=== PATIENT | female | born 1980 | race Caucasian/White ===

== ENCOUNTER → 2016-06-13 | Outpatient (CLI) | payer BC ==
[~2016-06-13] MED LIST: HYDR-5688 PO; PREN27TA PO; ZNTT/150 PO
--- NOTE | 2016-06-13 11:01 | DIAGNOSTIC IMAGING REPORT ---
LEFT KNEE 4 VIEWS CLINICAL HISTORY: Left knee pain. FINDINGS: AP, crosstable lateral, tunnel, and sunrise views of the left knee are compared to study dated 02/14/2015. The skeletal structures are well mineralized. No fracture is seen. The joint spaces of the knee are well-maintained. Mild osteochondral irregularity is again noted involving the medial compartment. Small calcified fabella is noted. A joint effusion is suspected. The overlying soft tissues are within normal limits. IMPRESSION: 1. Small joint effusion with no acute bony abnormality identified. 2. An osteochondral defect is again noted involving the medial femoral condyle. This is similar to the 2014 examination. Electronically signed by: Randy Jerez M.D. 06/13/2016 10:59 AM Dictated Date/Time: 06/13/2016 10:57 AM
== END | disposition home or self-care (01) ==
LOC: C.RDSM 10:00
PROVIDERS: ATTEND Family Medicine
DX: M25.562 Pain in left knee (principal)

== ENCOUNTER → 2016-07-17 | Day surgery (SDC) | payer BC ==
[2016-07-16 15:04] VITALS: Ht 179.1 cm; Wt 100.0 kg
[~2016-07-17] VITALS: Ht 179.1 cm; Wt 100.0 kg
[~2016-07-17] MED LIST changes: +ATROPINE SULFATE 0.1 MG/ML 5ML SYR IV PRN; +CEFAZOLIN 2000 MG/60 ML D5W IV SCH; +DEXAMETHASONE SOD INJ 4 MG/ML VIAL ONE; +EpHEDrine SULFATE INJ 50 MG/ML AMP IV PRN; +FENTANYL CITRATE INJ 50 MCG/1 ML 2 ML VIAL IV PRN; +FENTANYL CITRATE INJ 50 MCG/1 ML 2 ML VIAL ONE; +HYDROCODONE/ACETAMOPHEN 5/325MG TAB PO PRN; +KETOROLAC TROMETHAMINE 30 MG/ML VIAL ONE; +LACTATED RINGER'S 1000ML 1,000 ML IV SCH; +LIDOCAINE HCL 2% 2 ML VIAL (20MG/ML) ONE; +LIDOCAINE/EPINEPHRINE 1% INJ 50 ML VIAL ONE; +MIDAZOLAM HCL 1 MG/ML 2ML VIAL ONE; +MoRPHine SULFATE 2 MG/ML CARP IV PRN; +MoRPHine SULFATE 4 MG/ML 1 ML CARP\\VIAL IV PRN; +ONDANSETRON INJ 2 MG/ML 2 ML VIAL IV PRN; +ONDANSETRON INJ 2 MG/ML 2 ML VIAL ONE; -PREN27TA PO; +PROPOFOL IV EMULSION 10 MG/ML 20 ML VIAL IV ONE; +ROPIVACAINE 0.5% 5 MG/ML 30 ML VIAL ONE; +SCOPOLAMINE 1.5 MG TDSY TD ONE; +SODIUM CHLORIDE 0.9% 1000ML 1,000 ML IV SCH; -ZNTT/150 PO
--- NOTE | 2016-07-17 06:48 | History & Physical Bridge Note ---
H&P Re-Evaluation Bridge Note: I have examined the patient, reviewed the History & Physical and in the interval since the performance of the History & Physical I have noted the following changes of clinical significance: No changes noted
--- NOTE | 2016-07-17 09:32 | [facility] Post Operative Brief Note ---
Immediate Operative Summary Operative Date Jul 17, 2016. Pre-Operative Diagnosis Loose Body, Osteochondral Defect, Left Knee, possible medial meniscus tear Post-Operative Diagnosis Medial Mensicus tear, Osteochondritis Dessicans Lesion, loose body Procedure(s) Performed Left Knee Arthroscopy, Loose Body Removal, Micro Fracture, Carticel Biopsy and Partial Medial Menisectomy Surgeon Dr. Carina Garcia Flexible Machining System Machinist Surgeon(s) Dr. Garcia Estimated Blood Loss Minimal Findings as above, 12x15 unstable OCD Specimens Carticel Biopsy Drains 0 Anesthesia LMA with adductor block Complication(s) None Disposition Recovery Room / PACU
--- NOTE | 2016-07-17 09:44 | Discharge Instructions-SurgCtr ---
Discharge Instructions Visit Reason for Visit: Loose Body/Osteochondral Defect Left Knee Discharge Discharge Diagnosis / Problem: Status post right knee arthroscopic partial meniscectomy and microfractures Discharge Goals Goal(s): Decrease discomfort, Improve function, Increase independence Activity Recommendations Activity Limitations: per Instructions/Follow-up section The following are instructions to follow after your Arthroscopic Knee Surgery. ACTIVITY RECOMMENDATIONS: * Non weight bearing of the left lower extremity. Use crutches. * Minimize activity until your first visit after surgery. * No excessive walking, jogging, sports or laboring. * Return to activity is individualized. Most patients are able to return to every day activities within one month. * Return to sports or intensive labor usually occurs at 2-3 months. * Driving is not permitted until at least your first postoperative visit at a minimum. Please ask your doctor when it is safe to resume driving. If you have an automatic vehicle and your left leg has been operated on, then you may begin driving as soon as you are comfortable and can drive safely. SCHOOL/WORK RECOMMENDATIONS: * You may return to sedentary work or school when you are feeling more comfortable. This is usually 3-7 days after surgery. * Expect increased discomfort with increased activity. Continue to elevate and ice the leg as much as possible. MEDICATIONS: * You will have a prescription for pain medication and an anti-inflammatory medication after surgery. * Use the pain medication for severe pain and the anti-inflammatory for less severe pain. Once the pain medication has run out, try to use the anti-inflammatory medication. If this is not effective, contact the office for assistance. * The pain medication may cause nausea, constipation and drowsiness. You should see how they affect you before driving or similar activity. * The anti-inflammatory medication may cause stomach upset and bleeding. If this occurs let your doctor know immediately . * Take a stool softener like Colace or a laxative like Senokot to prevent constipation. DIET: * Resume previous diet. SPECIAL CARE: ICE: You have the option of an ice cooler, gel packs or ice bags. * If you have an ice cooler, refer to the instructions for that device. The ice cooler may be used continuously. * If you do not have an ice cooler, you will need to use ice bags or gel packs. Do not apply ice directly to the skin. Use a thin dressing or saud shirt between the skin and ice bag. Apply ice for 20-30 minutes and repeat every 2-4 hours. This is especially important for the first 7-10 days after surgery. Once the pain improves, use ice as needed. ELEVATION: * Keep your leg elevated at or above the level of your heart as much as possible. * Expect some increased discomfort and swelling if you are standing for any length of time. * When lying down, avoid placing anything under your knee. Rather, prop your leg up by placing several pillows under your heel or calf. DRESSING: * Your dressing will be changed at your first therapy appointment approximately 4-5 days after surgery. Band-aids, tape strips or gauze may be applied. You may then change your dressing daily. * Reapply dressing followed by the Jesus wrap or Tubi-margin analyst stockinet and EBIce cooling pad (if chosen). * Always wash your hands prior to touching the incision area. * Once the stitches are removed, you may leave the wound open to air or cover with an Jesus wrap or Tubi-margin analyst stockinet. * If you have been given a white elastic stocking (THERESA hose), wear as much as possible for the first 1-3 weeks depending on swelling. * Expect some bloody drainage for the first few days after surgery. * Leave the tape strips, if present, in place for 5-7 days. * Band-aids and gauze may be changed daily. CRUTCHES: * You will need to use crutches after surgery. * You may gradually progress to full weight bearing as tolerated and wean off the crutches unless otherwise advised. * Your therapist can provide assistance weaning off crutches. * Patients who have a microfracture done may need to be toe-touch weight- bearing for 4-6 weeks. BATHING: * You may shower or sponge-bathe immediately after surgery. * The dressing will need to be covered with a plastic bag or plastic wrap until the dressing is changed on the fourth or fifth day after surgery. * Once the dressing has been changed on the fourth or fifth day after surgery, you may shower and get the incision wet. * Wash with regular soap and water. * Do not bathe (submerge the incision), soak, swim or use a hot tub until the incision is completely healed over with normal skin and the doctor has given the OK to proceed. * There is no need to apply any ointments, powders or salves to your incision. * Do not apply alcohol or hydrogen peroxide directly to the incision. * Diluted peroxide (50:50 mixture with sterile saline) may be used to clean dried blood from around the incision area. BRACE: * Bracing is generally not needed after routine Arthroscopic Knee surgery. THERAPY: * You will begin therapy four or five days after surgery. * Organized therapy with the therapist is important for the first 4-6 weeks after surgery. During that time you will attend therapy 1-3 times per week. * You will also need to do daily exercises for range of motion and strength as instructed. PROBLEMS/QUESTIONS: * If you have any problems such as severe pain, numbness, tingling or high fevers or if you have any questions, please contact the office at [phone]. * It is not uncommon to have some numbness and tingling after the surgery especially if you have had a nerve block done. This should gradually improve over the first 1- 2 days. If this persists longer or worsens please contact the office. FOLLOW UP VISIT: * Follow up with Physical Therapy on 07/28/16. * Follow up with Dr. Carrero on 07/28/16 at 12:45 pm * If not already scheduled, please call the office at to schedule a follow-up appointment for 10 days, 6 weeks and 3 months after surgery. Anesthesia . Post Anesthesia Instructions: If you have had General Anesthesia or IV Sedation: * Do not drive today. * Resume driving when surgeon permits. * Do not make important decisions or sign legal documents today. * Call surgeon for: 1. Temperature elevations greater than 101 degrees F. 2. Uncontrollable pain. 3. Excessive bleeding. 4. Persistent nausea and vomiting. 5. Medication intolerance (nausea, vomiting or rash). * For nausea and vomiting use only clear liquids such as: tea, soda, bouillon until nausea subsides, then gradually increase diet as tolerated. * If you have any concerns or questions, call your surgeon's office. If physician is unavailable and it is an emergency, call 911 or go to the nearest emergency room. . Procedures Procedures Performed: Left Knee Arthroscopy, Loose Body Removal, Micro Fracture, Carticel Biopsy and Partial Medial Menisectomy Pending Studies Studies pending at discharge: no Medical Emergencies . Who to Call and When: Medical Emergencies: If at any time you feel your situation is an emergency, please call 911 immediately. . Non-Emergent Contact Non-Emergency issues call your: Surgeon Call Non-Emergent contact if: temperature is above 100.5, your pain is worsening, wound has increased redness . . "Provider Documentation" section prepared by Kevon Piper.
--- NOTE | 2016-07-17 09:47 | [facility] Operative Report ---
Operative Report Operative Date Jul 17, 2016. Pre-Operative Diagnosis Loose Body, Osteochondral Defect, Left Knee, possible medial meniscus tear Post-Operative Diagnosis Medial Mensicus tear, Osteochondritis Dessicans Lesion, loose body Procedure(s) Performed Left Knee Arthroscopy, Loose Body Removal, Micro Fracture, Carticel Biopsy and Partial Medial Menisectomy Surgeon Dr. Carina Garcia Roto Mixer Operator Surgeon(s) Dr. Garcia Estimated Blood Loss Minimal Specimens Carticel Biopsy Complication(s) None Disposition PCU I attest to the content of the Intraoperative Record and any orders documented therein. Any exceptions are noted below.
[2016-07-17 10:21] VITALS: TEMP 36.4
[2016-07-17 10:55] VITALS: BP 148/92; PULSE 59; O2SAT 100
--- NOTE | 2016-07-17 10:55 | Anesthesia Progress Nt - [facility] ---
Anesthesia Post Op Note Date & Time Jul 17, 2016 at 10:55 Vital Signs Pain Intensity: 3 Vital Signs Past 12 Hours Date Time Temp Pulse Resp B/P Pulse Ox O2 Delivery O2 Flow Rate FiO2 07/17/16 10:21 36.4 69 16 135/88 99 Room Air 07/17/16 10:13 136/99 98 07/17/16 10:12 62 18 99 07/17/16 10:12 65 18 07/17/16 10:10 36.4 07/17/16 10:08 150/94 07/17/16 10:07 67 10 07/17/16 10:07 71 10 93 07/17/16 10:03 145/93 07/17/16 10:02 62 14 100 07/17/16 10:02 59 14 07/17/16 09:58 132/91 07/17/16 09:57 63 15 100 07/17/16 09:57 63 15 07/17/16 09:53 139/89 07/17/16 09:52 56 12 07/17/16 09:52 57 12 100 07/17/16 09:48 130/83 07/17/16 09:47 56 10 07/17/16 09:47 56 10 100 07/17/16 09:43 128/84 07/17/16 09:42 58 11 07/17/16 09:42 57 11 99 07/17/16 09:39 129/88 07/17/16 09:38 129/88 07/17/16 09:37 64 11 99 07/17/16 09:37 66 11 07/17/16 09:33 152/89 07/17/16 09:32 64 13 99 07/17/16 09:32 68 13 07/17/16 09:30 36.6 74 12 146/88 97 Diffusion Mask 8 07/17/16 07:14 140/111 07/17/16 07:13 141/103 07/17/16 07:12 79 15 07/17/16 07:12 80 15 98 07/17/16 07:11 78 13 98 07/17/16 07:11 79 13 07/17/16 07:10 147/110 07/17/16 07:09 185/150 07/17/16 07:06 77 14 100 07/17/16 07:06 79 14 07/17/16 07:03 169/114 07/17/16 07:01 65 5 100 07/17/16 07:01 65 5 07/17/16 07:00 68 13 07/17/16 07:00 65 13 100 07/17/16 06:59 177/121 07/17/16 06:32 36.6 79 18 153/103 99 Room Air Notes Mental Status: alert / awake / arousable, participated in evaluation Pt Amnestic to Procedure: Yes Nausea / Vomiting: adequately controlled Pain: adequately controlled Airway Patency, RR, SpO2: stable & adequate BP & HR: stable & adequate Hydration State: stable & adequate Anesthetic Complications: no major complications apparent
--- NOTE | 2016-07-17 13:29 | OPERATIVE REPORT ---
DATE OF OPERATION: 07/17/2016 PREOPERATIVE DIAGNOSES: Left knee osteochondritis dissecans lesion, multiple loose bodies and possible medial meniscus tear. 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 PROCEDURES: Left knee arthroscopy, partial medial meniscectomy, removal of loose bodies, excision of osteochondritis dissecans lesion, Carticel biopsy, and partial medial meniscectomy. SURGEON: Dr. Scott Garcia. ENVELOPE FOLDING MACHINE ADJUSTER: Kevon Velasquez. No PA or resident available. ANESTHESIA: Laryngeal mask with adductor canal block. INDICATIONS OF PROCEDURE: The patient is a 36-year-old female who reports having pain in her left knee along with locking and swelling. X-rays and MRI showed an OCD lesion in the lateral aspect of the medial femoral condyle of uncertain stability. Several loose bodies were also noted on the MRI. There may be a medial meniscus tear as well. The patient also has patellofemoral pain clinically. Options discussed and she elected to proceed with surgery. PROCEDURE IN DETAIL: Informed consent was obtained. The patient identified as Shahrzad Camarillo. She identified the operative site as the left knee. I marked it with my initials. A preop surgical time-out was performed. A preoperative dose of IV antibiotics was given. She was taken to the operating room and positioned supine on the operating room table. A lateral post was used for stressing the knee. Tourniquet was applied to the thigh, but not inflated. The left leg was examined and prepped and draped in the usual sterile fashion. DVT prophylaxis will be done with early patient mobility postoperatively. The knee was injected with 1% lidocaine with epinephrine into the fat pad, portal sites and knee joint. The exam under anesthesia showed no effusion, full range of motion equal to the opposite side. She had a negative Jose Antonio firm endpoint and an absent pivot shift. She did have an ACL reconstruction on her right knee. Her pivot shift was trace at most. She did have trace MCL laxity of her left knee and she had a trace positive Jose Antonio and endpoint appeared to be intact on the right knee. The left leg was prepped and draped in the usual sterile fashion. Inferolateral viewing portal, superolateral outflow portal, and inferomedial working portal were established. Diagnostic arthroscopy was performed. The suprapatellar pouch, trochlea and medial and lateral gutters were unremarkable. There was some fissuring of the distal median ridge of the patella. Synovium around the inferior pole of the patella was debrided. There was a small osteophyte inferior medial on the patella with some mild chondrosis at the very margin of the patella present. This would be perhaps grade 2-3 over a very small area along the periphery of the patella and I do not think that it would be very clinically relevant. The cruciate ligaments were normal in appearance. The retropatellar fat pad and ligamentum mucosum were debrided. The posteromedial and lateral compartments were inspected and were normal. There was a small loose body noted in the intercondylar notch, which was debrided with a shaver. The lateral compartment showed grade 1 softening of the tibial plateau. The femoral condyle was normal. The lateral meniscus was intact and stable to probing. Popliteus hiatus is normal. Medial compartment showed some grade 1 fissuring of the cartilage on the tibial plateau, anterolateral. There was a probable ruptured undersurface bucket of the meniscus with 2 unstable flap fragments. This was debrided back to a stable balanced and a well-contoured rim using a shaver and basket forceps. I debrided the inner rim of the meniscus as it was split, thinned, and frayed. The meniscal roots throughout were intact. Perhaps 15%-20% of the meniscus was removed. Attention was turned to the femoral condyle where an irregularity in the cartilage was noted. The was best visualized and fairly easily visualized with the knee in about 100 degrees of flexion. There was an osteochondral fragment medially with a few fibers of the PCL attached. The lesion itself was unstable and could be lifted out of its bed. Arthroscopically, there did not appear to be significant bone attached to the lesion and the lesion was grossly unstable with divided cartilage superior and inferior, but not lateral. Lateral extents went over at least 12-15 mm from the intercondylar notch. I made am assessment at this point that the lesion was unstable and needed to be removed or repaired. Given the appearance and that it was somewhat beat up and did not have significant bone associated with it, that repairing it was probably going to be difficult if not impossible. I therefore went ahead and used a [place] to identify the medial margin of the lesion and broke through the cartilage there just on the medial side. I then went ahead and removed this fragment. It was essentially split into 2 hanging on by a partial thickness of the cartilage. The margins were significantly frayed. The articular surface was normal. There was no significant bone fragment attached to it. It was not suitable for repair. This along with some marginal cartilage around this area was resected and sent for a Carticel biopsy. The shaver was run into the knee to clean up debris. The osteochondral fragment in the notch was removed and did not compromise the PCL at all. This resulted in a lesion that was 12 mm anterior to posterior and 15 mm medial to lateral. It did involve a significant portion of the articular surface. It was full thickness. There was some subchondral bone loss, which I would estimate to be only several millimeters certainly less than 5 mm. There was one area medially where there was a small cyst that was debrided with a curette and shaver, which did go down to a depth of about 5 mm. The area was debrided with a curette. Vertical muro were created and a half dozen microfracture holes were made. The rationale was that if Carticel reimplantation was not an option, at least some treatment had been done. Due to the size and location of the lesion, I did not favor an autologous osteochondral transfer. The lesion would be optimally treated with a reimplantation of autologous chondrocytes. Minimal meniscus had been removed and I think her alignment is okay. She does not have bipolar cartilage disease. A Carticel biopsy was obtained. Appropriate paperwork was filled out and this was sent. The shaver was run through the knee to corn picker loose debris. There was good bleeding into the defects. Portals were closed with 4-0 nylon. Soft sterile dressing was applied. The patient awakened from anesthesia without difficulty and taken to recovery in stable condition. Specimens were as mentioned above. There were no complications. Counts were correct. Blood loss was minimal. At the conclusion of the operation, I spoke to the patient's mother and informed her of my findings. Postoperative instructions were given. She does not require any DVT prophylaxis and will work on range of motion. She will be nonweightbearing on the left leg. PLAN: Will be to attempt to get a Carticel approval and if so, return for reimplantation. I attest to the content of the Intraoperative Record and any orders documented therein. Any exceptions are noted below. MTDD
== END | disposition home or self-care (01) ==
LOC: X.SURG 06:20
PROVIDERS: ATTEND Physical Medicine & Rehabilitation Sports Medicine
DX: S83.242A Other tear of medial meniscus, current injury, left knee, initial encounter (principal); M95.8 Other specified acquired deformities of musculoskeletal system; M25.562 Pain in left knee; Z98.51 Tubal ligation status; Z85.828 Personal history of other malignant neoplasm of skin; Z82.49 Family history of ischemic heart disease and other diseases of the circulatory system; Z80.41 Family history of malignant neoplasm of ovary; X58.XXXA Exposure to other specified factors, initial encounter

== ENCOUNTER → 2017-02-16 | Outpatient (CLI) | payer SELFPAY | END | disposition home or self-care (01) | LOC: C.RDSM 14:33 | PROVIDERS: ATTEND Physical Medicine & Rehabilitation Sports Medicine | DX: S83.232D Complex tear of medial meniscus, current injury, left knee, subsequent encounter (principal); X58.XXXD Exposure to other specified factors, subsequent encounter ==

== ENCOUNTER 2022-03-31 16:47 | Inpatient (IN) ==
[2022-03-31] MEDS ORDERED: ACETAMINOPHEN 500 MG TAB PO STA (18:03)
[2022-03-31] MEDS ORDERED: ONDANSETRON INJ 2 MG/ML 2 ML VIAL IV ONE (18:04)
[2022-03-31] MEDS ORDERED: SODIUM CHLORIDE 0.9% 1000ML 500 ML IV SCH (18:15)
[2022-03-31 18:22] LABS: Hematocrit (blood only) 37.5 % (34.1-44.9); Hemoglobin 13.7 g/dl (12.0-16.0); Mean Corpuscular Hemoglobin 31.9 pg (25.0-34.0); Mean Corpuscular Hgb Conc 36.5 g/dL (32.0-36.0); Mean Corpuscular Volume 87.4 fL (80.0-100.0); Mean Platelet Volume 10.1 fL (9.4-12.3); Platelet Count 202 K/uL (130-400); RDW Coefficient of Variation 12.7 % (11.5-14.5); RDW Standard Deviation 40.1 fL (36.4-46.3); Red Blood Count 4.29 M/uL (3.93-5.22); White Blood Count 22.27 K/ul (4.8-10.8)
[2022-03-31 18:41] LABS: Basophils # (auto) 0.06 K/uL (0-0.2); Basophils % (auto) 0.3 %; Dohle Bodies 1+; Eosinophils # (auto) 0.04 K/uL (0-0.50); Eosinophils % (auto) 0.2 %; Immature Granulocytes # (auto) 0.38 K/uL (0.00-0.02); Immature Granulocytes % (auto) 1.7 %; Lymphocytes % (auto) 4.9 %; Monocytes % (auto) 3.6 %; Neutrophils # (auto) 19.89 K/uL (1.4-6.5); Neutrophils % (auto) 89.3 %; Toxic Vacuolation 1+
--- NOTE | 2022-03-31 18:43 | Emergency Department Note ---
Impression & Plan Urinary tract infection, Calculus of left ureter, RAS (acute kidney injury), Elevated procalcitonin, Elevated lactic acid level, Leukocytosis ED Provider Note HISTORY OF PRESENT ILLNESS: Patient is a 42-year-old female presenting with left flank pain and urinary tract infection. Patient reports that for the last 3 to 4 days she has been having left flank pain. Also reports some burning with urination in the last 48 hours. She presented to her regular doctor's office where dipstick urine showed infection. She was referred to the emergency department. Patient had a fever up to 102 yesterday. Reports that she took Tylenol earlier this morning for her fever. Reports multiple episodes of nausea and vomiting and has been unable to tolerate oral intake in the last 48 hours. Denies any recent antibiotic use. Denies any chest pain, shortness of breath, cough or recent exposure to sick contacts. ROS: Constitutional: No chills, or weakness +fever Skin: No rash or diaphoresis HENT: No headaches or congestion Eyes: No vision changes Cardio: No chest pain, palpitations or leg swelling Respiratory: No cough, wheezing or shortness of breath GI: No diarrhea, constipation +nausea; +vomiting; +left flank pain : No dysuria, polyuria MSK: No joint or back pain Neuro: No loss of sensation, confusion, focal deficits, numbness, tingling Psychiatric: No mood changes PHYSICAL EXAM: Constitutional: Patient appears in no acute distress. HENT: Head: Normocephalic and atraumatic. Eyes: EOMI, PERRL Mouth/Throat: Mucous membranes moist. Neck: Trachea midline. Neck supple. Cardiovascular: Tachyardic with regular rhythm. No murmurs, rubs or gallops. Intact distal pulses. Pulmonary/Chest: No respiratory distress. Breath sounds clear and equal bilaterally. No wheezes or rales. No chest wall tenderness to palpation. Abdominal: BS +. Abdomen soft, no tenderness, rebound or guarding. Back: No midline spinal tenderness, no paraspinal tenderness. Left CVA tenderness. Musculoskeletal: No edema, tenderness or deformity noted. Skin: Warm and dry. No rash, erythema, pallor or cyanosis Psychiatric: Appropriate mood and affect for situation. Neurological: Alert and keenly responsive. CN II-XII grossly intact, moving all extremities equally and fully. MDM: - Vitals signs showed fever, tachycardia and tachypnea. - Laboratory workup showed leukocytosis (WBC 22.27) with neutrophilic shift; elevated lactate (2.4); hypokalemia (K 3.2); RAS (Cr 2.22); elevated procalcitonin (53.85) - CT abdomen/pelvis wo contrast showed 5 mm proximal left ureteral calculus which results in moderate left hydronephrosis. Moderate left perinephric and periureteral stranding and fluid could be related to the obstruction or represent a superimposed infection. - CXR negative for acute cardiopulmonary pathology. - UA shows evidence of infection - Patient given 2L NS, 4 mg IV zofran, 1g IV tylenol, IV vancomycin and rocephin for antibiotic coverage - Urologist health professional, Dr. Ang consulted. Recommends NPO status at this time. May take patient for stent. - Hospitalist, Dr. Mansfield, consulted for admission. - Patient admitted to [facility] for further evaluation and management. ASSESSMENT AND PLAN: Diagnosis: Urinary tract infection; sepsis; RAS; elevated procalcitonin; hypokalemia; elevated lactate; infected left ureteral stone Plan: admit Past Med/Surg History Medical History delivery delivered Hypertension Squamous cell carcinoma Term (05/16/14) Family History Grandfather (Paternal) Cancer Myocardial infarction Hypertension Grandmother (Maternal) Cancer Grandmother (Paternal) Cancer Mother Hypertension Sister Hypertension Social History Smoking Status: Never smoker Hx Alcohol Use: Yes Alcohol type: beer, wine and hard liquor Alcohol Intake Frequency: Monthly or Less Feels Safe at Home: Yes Allergies Allergies Allergy/AdvReac Type Severity Reaction Status Date / Time No Known Allergies Allergy Unverified 03/31/22 19:13 Home Meds Home Medications Medication Instructions Recorded Confirmed hydrochlorothiazide 25 mg tablet 25 mg PO DAILY 12/18/21 03/31/22 Results & Data (ED) Vital Signs Vital Signs - 24 hr 03/31/22 17:42 03/31/22 18:41 03/31/22 19:16 Temperature 38.6 C H 38.6 C H Temperature Source Oral Oral Pulse Rate 102 H 92 H Pulse Rate [Apical] Pulse Rhythm Regular Regular Pulse Strength Normal Respiratory Rate 26 H 22 Respiratory Effort / Characteristics Labored Respiratory Depth Respiratory Pattern Regular Blood Pressure [Right Arm] Blood Pressure Mean [Right Arm] Blood Pressure Position Sitting Pulse Oximetry 100 95 Oxygen Delivery Method Room Air Room Air Sepsis Recent Fever Within 48 Hours Yes Sepsis New/Unexplained Change in Mental Status Yes Sepsis Action Taken by Nursing No Action Required 03/31/22 20:03 Temperature Temperature Source Pulse Rate Pulse Rate [Apical] 95 H Pulse Rhythm Pulse Strength Respiratory Rate 20 Respiratory Effort / Characteristics Non-Labored Respiratory Depth Normal Respiratory Pattern Blood Pressure [Right Arm] 115/87 Blood Pressure Mean [Right Arm] 96 Blood Pressure Position Pulse Oximetry 95 Oxygen Delivery Method Room Air Sepsis Recent Fever Within 48 Hours Sepsis New/Unexplained Change in Mental Status Sepsis Action Taken by Nursing Laboratory Data Result diagrams: 03/31/22 18:10 03/31/22 18:10 Lab Results 03/31/22 03/31/22 03/31/22 Range/Units 18:10 18:10 18:10 WBC 22.27 H (4.8-10.8) K/ul RBC 4.29 (3.93-5.22) M/uL Hgb 13.7 (12.0-16.0) g/dl Hct 37.5 (34.1-44.9) % MCV 87.4 (80.0-100.0) fL MCH 31.9 (25.0-34.0) pg MCHC 36.5 H (32.0-36.0) g/dL RDW Std Deviation 40.1 (36.4-46.3) fL RDW Coeff of Usama 12.7 (11.5-14.5) % Plt Count 202 (130-400) K/uL MPV 10.1 (9.4-12.3) fL Immature Gran % (Auto) 1.7 % Neut % (Auto) 89.3 % Lymph % (Auto) 4.9 % Finney % (Auto) 3.6 % Eos % (Auto) 0.2 % Baso % (Auto) 0.3 % Neut # (Auto) 19.89 H (1.4-6.5) K/uL Lymph # (Auto) 1.10 L (1.2-3.4) K/uL Finney # (Auto) 0.80 (0.24-0.82) K/uL Eos # (Auto) 0.04 (0-0.50) K/uL Baso # (Auto) 0.06 (0-0.2) K/uL Immature Gran # (Auto) 0.38 H (0.00-0.02) K/uL Toxic Vacuolation 1+ Dohle Bodies 1+ Sodium 135 L (136-145) mmol/L Potassium 3.2 L (3.5-5.1) mmol/L Chloride 98 (98-107) mmol/L Carbon Dioxide 22 (21-32) mmol/L Anion Gap 15 H (3-11) BUN 27 H (6-23) mg/dl Creatinine 2.22 H (0.6-1.2) mg/dl Est Cr Clr Drug Dosing 43.9 ml/min Est GFR ( Amer) 31.1 ml/min Est GFR (Non-Af Amer) 26.8 ml/min BUN/Creatinine Ratio 12.2 (10-20) Glucose 100 H (70-99(Fasting)) mg/dl Lactate (0.4-2.0) mmol/L Calcium 9.5 (8.5-10.1) mg/dl Magnesium 1.4 L (1.7-2.4) mg/dl Total Bilirubin 2.2 H (0.2-1.0) mg/dl Direct Bilirubin 0.3 H (0-0.2) mg/dl AST 29 (13-39) U/L ALT 30 (7-52) U/L Alkaline Phosphatase 47 (34-104) U/L Troponin I High Sens 6.8 (0-14) pg/ml Total Protein 7.6 (6.0-8.3) gm/dl Albumin 4.0 (3.4-5.0) gm/dl Procalcitonin 53.85 H (0-0.5) ng/ml Urine Test (Negative) 03/31/22 03/31/22 Range/Units 18:53 20:24 WBC (4.8-10.8) K/ul RBC (3.93-5.22) M/uL Hgb (12.0-16.0) g/dl Hct (34.1-44.9) % MCV (80.0-100.0) fL MCH (25.0-34.0) pg MCHC (32.0-36.0) g/dL RDW Std Deviation (36.4-46.3) fL RDW Coeff of Usama (11.5-14.5) % Plt Count (130-400) K/uL MPV (9.4-12.3) fL Immature Gran % (Auto) % Neut % (Auto) % Lymph % (Auto) % Finney % (Auto) % Eos % (Auto) % Baso % (Auto) % Neut # (Auto) (1.4-6.5) K/uL Lymph # (Auto) (1.2-3.4) K/uL Finney # (Auto) (0.24-0.82) K/uL Eos # (Auto) (0-0.50) K/uL Baso # (Auto) (0-0.2) K/uL Immature Gran # (Auto) (0.00-0.02) K/uL Toxic Vacuolation Dohle Bodies Sodium (136-145) mmol/L Potassium (3.5-5.1) mmol/L Chloride (98-107) mmol/L Carbon Dioxide (21-32) mmol/L Anion Gap (3-11) BUN (6-23) mg/dl Creatinine (0.6-1.2) mg/dl Est Cr Clr Drug Dosing ml/min Est GFR ( Amer) ml/min Est GFR (Non-Af Amer) ml/min BUN/Creatinine Ratio (10-20) Glucose (70-99(Fasting)) mg/dl Lactate 2.4 H* (0.4-2.0) mmol/L Calcium (8.5-10.1) mg/dl Magnesium (1.7-2.4) mg/dl Total Bilirubin (0.2-1.0) mg/dl Direct Bilirubin (0-0.2) mg/dl AST (13-39) U/L ALT (7-52) U/L Alkaline Phosphatase (34-104) U/L Troponin I High Sens (0-14) pg/ml Total Protein (6.0-8.3) gm/dl Albumin (3.4-5.0) gm/dl Procalcitonin (0-0.5) ng/ml Urine Test Negative (Negative) Administered Medications Vancomycin HCl 2,250 mg/ (Sodium Chloride) 545 mls @ 200 mls/hr IV NOW ONE Stop: 03/31/22 21:59 Last Infusion: 03/31/22 20:23 Dose: 0 mls/hr Documented By: Admin: 03/31/22 19:55 Dose: 200 mls/hr Documented By: ES Discontinued Medications Acetaminophen (Acetaminophen 500 Mg Tab) 1,000 mg PO NOW STA Stop: 03/31/22 18:04 Last Admin: 03/31/22 18:17 Dose: 1,000 mg Documented By: HG Sodium Chloride (Nss 1000ml) 500 mls @ 999 mls/hr IV .Q31M IVAN Stop: 03/31/22 18:45 Last Infusion: 03/31/22 19:55 Dose: 0 mls/hr Documented By: Admin: 03/31/22 18:18 Dose: 999 mls/hr Documented By: HG Sodium Chloride (Nss 1000ml) 1,000 mls @ 999 mls/hr IV .Q1H1M ONE Stop: 03/31/22 20:16 Last Admin: 03/31/22 19:55 Dose: 999 mls/hr Documented By: JESSE Ceftriaxone Sodium (Rocephin) 2,000 mg in 70 mls @ 140 mls/hr IV NOW STA Stop: 03/31/22 20:34 Last Admin: 03/31/22 20:29 Dose: 140 mls/hr Documented By: JESSE Ondansetron HCl (Ondansetron Inj 2 Mg/Ml 2 Ml Vial) 4 mg IV ONCE ONE Stop: 03/31/22 18:05 Last Admin: 03/31/22 18:17 Dose: 4 mg Documented By: ALYCE Imaging Data Radiologist's Impression: Chest X-Ray 03/31/22 18:03 XR chest 1V portable CLINICAL HISTORY: Sepsis COMPARISON STUDY: No previous studies for comparison. FINDINGS: Lung volumes are normal. Lungs are clear. There is no pneumothorax or pleural effusion. Prominence of the cardiac silhouette is likely technical. Mediastinal contours are normal. There is no evidence for pulmonary edema. IMPRESSION: No acute cardiopulmonary findings. ACT 112: Negative or not required by law. Electronically signed by: Eloy Phan M.D. 03/31/2022 7:38 PM Abdomen/Pelvis CT 03/31/22 18:05 CT OF THE ABDOMEN AND PELVIS WITHOUT CONTRAST CLINICAL HISTORY: left flank pain; UTI COMPARISON STUDY: No previous studies for comparison. TECHNIQUE: Axial images of the abdomen and pelvis were obtained without IV contr ast. Images were reviewed in the axial, sagittal, and coronal planes. Automated exposure control was utilized for the study. A dose lowering technique was utilized adhering to the principles of ALARA. FINDINGS: Lung bases are unremarkable. A 5 mm proximal left ureteral calculus results in moderate left hydronephrosis with moderate perinephric and periureteral stranding and fluid. No additional ureteral calculi are present. There is no right hydronephrosis. There is a 2 mm calculus within lower pole of the left kidney. Evaluation of the remainder of the abdomen and pelvis is suboptimal on this unenhanced exam. There is hepatic steatosis. Mild splenomegaly is noted. Unenhanced images of the adrenal glands and pancreas are unremarkable. There is no evidence for a bowel obstruction. Small amount of fluid within the pelvis is noted. The appendix is normal. There is no acute fracture or suspicious lesion within the visualized skeletal structures. IMPRESSION: 1. 5 mm proximal left ureteral calculus which results in moderate left hydronephrosis. Moderate left perinephric and periureteral stranding and fluid c ould be related to the obstruction or represent a superimposed infection. 2. 2 mm left renal calculus. ACT 112: Negative or not required by law. Electronically signed by: Eloy Phan M.D. 03/31/2022 6:52 PM Discharge Plan Visit Data Chief Complaint: Infection Stated Complaint: KIDNEY INFECTION ED Provider: Luzma Cameron Discharge Problem: Urinary tract infection, Calculus of left ureter, RAS (acute kidney injury), Elevated procalcitonin, Elevated lactic acid level, Leukocytosis Forms Stand Alone Forms: My [facility] [employer] Prescriptions Prescriptions: No Action hydrochlorothiazide 25 mg tablet 25 mg PO DAILY Referrals Referrals: Divina Berrios CRNP [Primary Care Provider] -
[2022-03-31 18:48] LABS: Troponin I High Sensitivity 6.8 pg/ml (0-14)
--- NOTE | 2022-03-31 18:54 | CT Scan Report ---
CT OF THE ABDOMEN AND PELVIS WITHOUT CONTRAST CLINICAL HISTORY: left flank pain; UTI COMPARISON STUDY: No previous studies for comparison. TECHNIQUE: Axial images of the abdomen and pelvis were obtained without IV contrast. Images were revi ewed in the axial, sagittal, and coronal planes. Automated exposure control was utilized for the gabriella dy. A dose lowering technique was utilized adhering to the principles of ALARA. FINDINGS: Lung bases are unremarkable. A 5 mm proximal left ureteral calculus results in moderate lef t hydronephrosis with moderate perinephric and periureteral stranding and fluid. No additional ureter al calculi are present. There is no right hydronephrosis. There is a 2 mm calculus within lower pole of the left kidney. Evaluation of the remainder of the abdomen and pelvis is suboptimal on this unenh anced exam. There is hepatic steatosis. Mild splenomegaly is noted. Unenhanced images of the adrenal glands and pancreas are unremarkable. There is no evidence for a bowel obstruction. Small amount of f luid within the pelvis is noted. The appendix is normal. There is no acute fracture or suspicious les ion within the visualized skeletal structures. IMPRESSION: 1. 5 mm proximal left ureteral calculus which results in moderate left hydronephrosis. Moderate left perinephric and periureteral stranding and fluid could be related to the obstruction or represent a s uperimposed infection. 2. 2 mm left renal calculus. ACT 112: Negative or not required by law. Electronically signed by: Eloy Phan M.D. 03/31/2022 6:52 PM
[2022-03-31 19:03] LABS: BUN Creatinine Ratio 12.2 (10-20); Bilirubin Direct 0.3 mg/dl (0-0.2); Bilirubin,Total 2.2 mg/dl (0.2-1.0); Calcium 9.5 mg/dl (8.5-10.1); Creatinine Clr Calc Pharmacy 43.9 ml/min; Est GFR (African American) 31.1 ml/min; Est GFR (Non-African American) 26.8 ml/min; Magnesium 1.4 mg/dl (1.7-2.4); Potassium 3.2 mmol/L (3.5-5.1); Total Protein 7.6 gm/dl (6.0-8.3)
[2022-03-31] MEDS ORDERED: VANCOMYCIN HCL 2,250 MG in SODIUM CHLORIDE 0.9% 500 ML IV ONE (19:16)
[2022-03-31] MEDS ORDERED: SODIUM CHLORIDE 0.9% 1000ML 1,000 ML IV ONE (19:16)
[2022-03-31] MEDS ORDERED: VANCOMYCIN CONSULT ACTIVE PRN (19:16)
--- NOTE | 2022-03-31 19:39 | XRay Report ---
XR chest 1V portable CLINICAL HISTORY: Sepsis COMPARISON STUDY: No previous studies for comparison. FINDINGS: Lung volumes are normal. Lungs are clear. There is no pneumothorax or pleural effusion. Pro minence of the cardiac silhouette is likely technical. Mediastinal contours are normal. There is no e vidence for pulmonary edema. IMPRESSION: No acute cardiopulmonary findings. ACT 112: Negative or not required by law. Electronically signed by: Eloy Phan M.D. 03/31/2022 7:38 PM
[2022-03-31] MEDS ORDERED: cefTRIAXone SODIUM 2,000 MG/70 ML BAG IV STA (20:05)
--- NOTE | 2022-03-31 20:32 | Urology Consultation ---
Date of Consultation March 31, 2022 Assessment & Plan (1) RAS (acute kidney injury): (2) Elevated lactic acid level: (3) Sepsis: (4) Obstruction of left ureteropelvic junction due to stone: (5) Urinary tract infection: (6) Calculus of left ureter: (7) COVID: Plan Patient with clinical sepsis with significant elevated white count, tachycardia, and febrile with obstructing stone likely source. Patient likely has acute pyelonephritis. Patient is acutely ill and undergoing resuscitation with volume replenishment as well as management of fever. Patient has shown some response to the fluids with a decrease in tachycardia. Blood pressures have remained stable. Patient has not had a response due to the fever. Concern for possibly disseminated disease with possible developed of septicemia. Patient did have a small bout of oral intake while in the ER. At this point though due to ongoing sepsis as well as resuscitation and mild improvement only on vitals with emergency room management have discussed and considered possible surgical intervention. Discussed decompression of the system. Discussed drainage of infection as well as management of obstructive issues. Discussed patient's ongoing pain issues. Discussed patient's development of RAS as well as lactic acidosis and other issues. Discussed need for likely close monitoring. Discussed need to finalize blood and urine cultures to finalize antibiotic management with plans for de- escalation once antibiotics are available. Patient is being admitted by the hospitalist team will likely undergo emergent procedure for decompression of left collecting system from obstructing stone. Extensively reviewed risk efforts and expectations. Risks and benefits discussed at length for procedure. These include bleeding, infection, injury to surrounding tissues or organs, and risks associated with anesthesia. Patient states understanding and agrees to proceed. Will sign consent and proceed with emergent procedure. Discussed need for emergent intervention due to severity of obstruction as well as the potential development of severe sepsis especially with no response to the patient's ongoing febrile illness. Patient is agreeable. We will plan for cystoscopy with left stent placement Plan for emergent procedure. Patient tested positive for COVID. presumed active infection. Will plan to proceed with full precautions. Procedure already considered emergent with possible loss of life or limb due to severe sepsis with obstructing stone. Greater than 90 minutes spent in managing and acutely caring for patient as well as preparing for emergent intervention. History of Present Illness History of Present Illness Urgent/emergent consultation for acutely ill and septic patient with UTI/Pyelo, discomfort, and ill feelings. Patient developed sudden onset of pain into flank going down and radiating into groin and back in waves comes and goes. Patient had been seen by her PCP and there was concern for pyelonephritis. Was sent to the ER for evaluation. Underwent CT scan and found to have obstructing 5 mm stone with considerable perinephric stranding and severe hydronephrosis on the left. An additional small stone up in the left kidney. Imaging was reviewed interpreted by myself. Can be severe at times. Patient did have a small amount of pretzels earlier when patient first arrived to the ER. Patient initially presented with significant tachycardia. Febrile with temperature of 38.6. Patient is had a gram of Tylenol with no response to the fever. Tachycardia has improved with hydration. Not under 95. Patient has a significant RAS at 2.2 creatinine. Discussed and reviewed patient's personal medical, surgical, social, and family history for any history of issues, infections, and disease. Also, discussed patient's medical/surgery history especially related to any history of urinary issues or stone disease. Patient is undergoing intense/critical management for acute illness and is being admitted to undergo voiding resuscitation with broad-spectrum antibiotics Hospitalist has admitted and is undergoing observation with broad spectrum IV antibiotics. Allergies Allergy/AdvReac Type Severity Reaction Status Date / Time No Known Allergies Allergy Unverified 03/31/22 19:13 Home Medications Medication Instructions Recorded Confirmed Type hydrochlorothiazide 25 mg tablet 25 mg PO DAILY 12/18/21 03/31/22 History Patient History Medical History delivery delivered Hypertension Squamous cell carcinoma Term (05/16/14) Family History Grandfather (Paternal) Cancer Myocardial infarction Hypertension Grandmother (Maternal) Cancer Grandmother (Paternal) Cancer Mother Hypertension Sister Hypertension Social History Smoking Status: Never smoker Hx Alcohol Use: Yes Alcohol type: beer, wine and hard liquor Alcohol Intake Frequency: Monthly or Less Feels Safe at Home: Yes Review of Systems Review of Systems: All systems reviewed & are unremarkable except as noted in HPI & below Limited due to patient illness Physical Exam Physical Exam: General: Acutely ill. Undergoing management for acute severe i nfection HEENT: Normocephalic Atraumatic. Inspection normal. Cranial Nerves 2-12 Grossly intact. Nares are clear. Neck is supple. Normal inspection of face. Normal inspection of neck. Neurologic: No deficits on inspection. Baseline for motor function and sensory. Psychologic: Anxious, no significant onset of acute delirium secondary to illness Respiratory: Mild labored. No use of accessory muscles. No severe dyspnea. Cardiovascular: tachycardia Skin: Merino and Dry. No rashes or visible lesions. Febrile Extremities: Moving without issues. No motor deficits on inspection Lymphatics: Mild edema Abdomen: Mildly distended. No rebound or guarding. Mild suprapubic/flank tenderness Results & Data ([facility]) Vital Signs (Past 12 Hours) Vital Signs Temp Pulse Pulse Resp BP Pulse Ox O2 Del Method 03/31/22 20:03 95 H 20 115/87 95 Room Air 03/31/22 19:16 38.6 C H 03/31/22 18:41 92 H 22 95 Room Air 03/31/22 17:42 38.6 C H 102 H 26 H 100 Room Air PG Care Time/CCT Total # of Minutes Spent Total Time Spent with Patient: Total time spent is greater than 50% in coordination of care (as documented) at patient's floor/unit and/or counseling patient: Coding Level of Care Code 01043 Inpt Consult Level 5 Diagnoses RAS (acute kidney injury) N17.9 Elevated lactic acid level R79.89 Sepsis A41.9 Obstruction of left ureteropelvic junction due to stone N20.1 Urinary tract infection N39.0 Calculus of left ureter N20.1 COVID U07.1
[2022-03-31 20:35] LABS: Pregnancy Test, Urine Negative (Negative)
[2022-03-31 20:39] LABS: Appearance Urine Clear (Clear); Bacteria Urine Automated Negative (Negative); Bilirubin Urine Negative (Negative); Blood Urine Trace (Negative); Cast Urine Automated 0 /lpf (0-5); Color Urine Yellow; Glucose Urine UA Negative (Negative); Ketones Urine Trace (Negative); Leukocyte Esterase Urine Negative (Negative); Nitrite Urine Negative (Negative); Urobilinogen Urine Negative (Negative); pH Urine 7.5 (4.5-7.5)
[2022-03-31] MEDS ORDERED: MoRPHine SULFATE 4 MG/ML 1 ML CARP\\VIAL IV PRN (20:40)
--- NOTE | 2022-03-31 20:40 | History & Physical Report ---
Date of Service March 31, 2022 Assessment & Plan (1) Obstruction of left ureteropelvic junction due to stone: Plan: 5 mm proximal left ureteral calculus/moderate left hydronephrosis/sepsis due to UTI N.p.o. for procedure NSS@125 MLS per hour, following the 1500 mils given in ED Ceftriaxone 2 g IV daily Discontinue vancomycin IV Acetaminophen 650 mg p.o. every 6 hours as needed mild pain or fever Morphine sulfate 2 mg IV every 3 hours as needed moderate pain Morphine sulfate 4 mg IV every 3 hours as needed for severe pain (2) Sepsis due to urinary tract infection: (3) Asymptomatic COVID-19 virus infection: Plan: COVID-19 infection found on routine screening for admission Patient be placed on COVID-19 precautions, however, is asymptomatic and does not require treatment. She would like to qualify for remdesivir due to present kidney function, it would not be advisable to give dexamethasone due to current septic state (4) RAS (acute kidney injury): Plan: Acute kidney injury/hypokalemia/hypomagnesemia- Potassium 3.2, magnesium 1.4 and creatinine 2.22 Give KCl 10 mEq IV x1 Magnesium sulfate 2 g IV Status post 1500 mils in the ED of normal saline Continue NSS at 125 MLS per hour Repeat BMP and magnesium levels in a.m. Hold HCTZ (5) Hypertension: Plan: Hold HCTZ due to associated hypokalemia, hypomagnesemia and RAS (6) Hydronephrosis with obstructing calculus: (7) Hydronephrosis of left kidney: (8) Hypokalemia: (9) Hypomagnesemia: History of Present Illness Chief Complaint: The patient presents to the emergency department with complaint of 3 to 4 days of left flank pain and burning with urination. She had presented to her PCPs office with these complaints, and urine dipstick showed infection, and she was referred to the ED for assessment. Yesterday her temperature was up to 102 F, with some relief with Tylenol. She has had multiple episodes of nausea vomiting over the past 48 hours, and has been unable to tolerate any oral intake. Primary Care Provider: VERNON Posadas The patient is a 42-year-old female with a past medical history of hypertension, acne, previous , DSAP and vitamin D deficiency. She presents to the emergency department with symptoms as noted above. Work-up in the emergency department included the following abnormal laboratories: WBC 22.27, potassium 3.2, creatinine 2.22, magnesium 1.4, total bilirubin 2.2, direct bilirubin 0.[address] scan of abdomen and pelvis showed a 5 mm proximal obstructing left ureteral calculus, with moderate left hydro ureteral nephrosis with adjacent stranding. Allergies Allergy/AdvReac Type Severity Reaction Status Date / Time No Known Allergies Allergy Unverified 03/31/22 19:13 Home Medications Medication Instructions Recorded Confirmed Type hydrochlorothiazide 25 mg tablet 25 mg PO DAILY 12/18/21 03/31/22 History Past Med/Surg History Medical History (Updated 04/01/22 @ 03:10 by Darvin Mansfield MD) Hypertension Obstruction of left ureteropelvic junction due to stone Squamous cell carcinoma Surgical History (Updated 03/31/22 @ 21:47 by Marshall Steen MD) History of Family History Grandfather (Paternal) Cancer Myocardial infarction Hypertension Grandmother (Maternal) Cancer Grandmother (Paternal) Cancer Mother Hypertension Sister Hypertension Social History Smoking Status: Never smoker Hx Alcohol Use: Yes Alcohol type: beer and wine Alcohol Intake Frequency: Monthly or Less Hx Substance Use: No Preferred Language: Lao Senior Inform[employer] Developer Required: No Beliefs That Will Affect Care: None Current Living Situation: Family Feels Safe at Home: Yes Safety Concerns: Feels Safe At This Time Assistive Devices: None Review of Systems Review of Systems: The patient denies chest pain, palpitations, shortness of breath, dyspnea on exertion, cough, lower extremity swelling, sore throat, fevers, chills, sweats, weight change, diarrhea , constipation, blood in urine or stool, dysuria, urinary frequency or urgency, lightheadedness, dizziness, headache, memory loss, loss of consciousness, rash, abnormal bruising or bleeding, imbalance, focal or generalized weakness, numbness or tingling in arms or legs, generalized arthralgias or myalgias, back or neck pain, or night sweats. The review of systems is otherwise negative other than for that already noted above, and at least 10 systems have been reviewed. Physical Exam Physical Exam: The patient is awake, alert and oriented 3, well developed and well nourished, normocephalic and atraumatic, lying in bed and in no acute distress. HEENT--PERRL, EOMI, mucous membranes and oropharynx dry. Neck--supple. No JVD. No bruits. Thyroid normal, trachea midline, no adenopathy. Heart--normal S1 and S2. No murmurs, rubs or gallops. Lungs--clear bilaterally, no respiratory distress, no accessory muscle use. Abdomen--normal bowel sounds and soft. Nontender. Nondistended, no hernias or masses, no organomegaly. Extremities--no cyanosis or clubbing. No edema. There are good distal pulses b/l. Dermatologic--normal skin turgor, normal color, no abnormal lymph nodes, no rash. Neurologic--cranial nerves II through XII grossly intact. Rheumatologic--normal range of motion. Psychiatric--normal affect. Results & Data Results & Data ([facility]) Vital Signs (Past 12 Hours) Vital Signs Temp Pulse Pulse Resp BP Pulse Ox O2 Del Method 03/31/22 20:03 95 H 20 115/87 95 Room Air 03/31/22 19:16 38.6 C H 03/31/22 18:41 92 H 22 95 Room Air 03/31/22 17:42 38.6 C H 102 H 26 H 100 Room Air Laboratory Results Laboratory Results WBC 22.27 K/ul (4.8-10.8) H 03/31/22 18:10 RBC 4.29 M/uL (3.93-5.22) 03/31/22 18:10 Hgb 13.7 g/dl (12.0-16.0) 03/31/22 18:10 Hct 37.5 % (34.1-44.9) 03/31/22 18:10 MCV 87.4 fL (80.0-100.0) 03/31/22 18:10 MCH 31.9 pg (25.0-34.0) 03/31/22 18:10 MCHC 36.5 g/dL (32.0-36.0) H 03/31/22 18:10 RDW Std Deviation 40.1 fL (36.4-46.3) 03/31/22 18:10 RDW Coeff of Usama 12.7 % (11.5-14.5) 03/31/22 18:10 Plt Count 202 K/uL (130-400) 03/31/22 18:10 MPV 10.1 fL (9.4-12.3) 03/31/22 18:10 Immature Gran % (Auto) 1.7 % 03/31/22 18:10 Neut % (Auto) 89.3 % 03/31/22 18:10 Lymph % (Auto) 4.9 % 03/31/22 18:10 [place] % (Auto) 3.6 % 03/31/22 18:10 Eos % (Auto) 0.2 % 03/31/22 18:10 Baso % (Auto) 0.3 % 03/31/22 18:10 Neut # (Auto) 19.89 K/uL (1.4-6.5) H 03/31/22 18:10 Lymph # (Auto) 1.10 K/uL (1.2-3.4) L 03/31/22 18:10 [place] # (Auto) 0.80 K/uL (0.24-0.82) 03/31/22 18:10 Eos # (Auto) 0.04 K/uL (0-0.50) 03/31/22 18:10 Baso # (Auto) 0.06 K/uL (0-0.2) 03/31/22 18:10 Immature Gran # (Auto) 0.38 K/uL (0.00-0.02) H 03/31/22 18:10 Toxic Vacuolation 1+ 03/31/22 18:10 Dohle Bodies 1+ 03/31/22 18:10 Sodium 135 mmol/L (136-145) L 03/31/22 18:10 Potassium 3.2 mmol/L (3.5-5.1) L 03/31/22 18:10 Chloride 98 mmol/L (98-107) 03/31/22 18:10 Carbon Dioxide 22 mmol/L (21-32) 03/31/22 18:10 Anion Gap 15 (3-11) H 03/31/22 18:10 BUN 27 mg/dl (6-23) H 03/31/22 18:10 Creatinine 2.22 mg/dl (0.6-1.2) H 03/31/22 18:10 Est Cr Clr Drug Dosing 43.9 ml/min 03/31/22 18:10 Est GFR ( Amer) 31.1 ml/min 03/31/22 18:10 Est GFR (Non-Af Amer) 26.8 ml/min 03/31/22 18:10 BUN/Creatinine Ratio 12.2 (10-20) 03/31/22 18:10 Glucose 100 mg/dl (70-99(Fasting)) H 03/31/22 18:10 Lactate 2.6 mmol/L (0.4-2.0) H* 03/31/22 20:49 Calcium 9.5 mg/dl (8.5-10.1) 03/31/22 18:10 Magnesium 1.4 mg/dl (1.7-2.4) L 03/31/22 18:10 Total Bilirubin 2.2 mg/dl (0.2-1.0) H 03/31/22 18:10 Direct Bilirubin 0.3 mg/dl (0-0.2) H 03/31/22 18:10 AST 29 U/L (13-39) 03/31/22 18:10 ALT 30 U/L (7-52) 03/31/22 18:10 Alkaline Phosphatase 47 U/L (34-104) 03/31/22 18:10 Troponin I High Sens 6.8 pg/ml (0-14) 03/31/22 18:10 Total Protein 7.6 gm/dl (6.0-8.3) 03/31/22 18:10 Albumin 4.0 gm/dl (3.4-5.0) 03/31/22 18:10 Procalcitonin 53.85 ng/ml (0-0.5) H 03/31/22 18:10 Urine Color Yellow 03/31/22 20:24 Urine Appearance Clear (Clear) 03/31/22 20:24 Urine pH 7.5 (4.5-7.5) 03/31/22 20:24 Ur Specific [place] 1.010 (1.000-1.030) 03/31/22 20:24 Urine Protein 1+ (Negative) H 03/31/22 20:24 Urine Glucose (UA) Negative (Negative) 03/31/22 20:24 Urine Ketones Trace (Negative) H 03/31/22 20:24 Urine Blood Trace (Negative) H 03/31/22 20:24 Urine Nitrite Negative (Negative) 03/31/22 20:24 Urine Bilirubin Negative (Negative) 03/31/22 20:24 Urine Urobilinogen Negative (Negative) 03/31/22 20:24 Ur Leukocyte Esterase Negative (Negative) 03/31/22 20:24 Urine WBC (Auto) 1-5 /hpf (0-5) 03/31/22 20:24 Urine RBC (Auto) 0-4 /hpf (0-4) 03/31/22 20:24 U Hyaline Cast (Auto) 0 /lpf (0-5) 03/31/22 20:24 U Epithel Cells (Auto) 10-20 /lpf (0-5) H 03/31/22 20:24 Urine Bacteria (Auto) Negative (Negative) 03/31/22 20:24 Urine Test Negative (Negative) 03/31/22 20:24 SARS-CoV-2, RNA, NAAT POSITIVE (NEGATIVE) A* 03/31/22 20:15 Impressions Chest X-Ray 03/31/22 18:03 XR chest 1V portable CLINICAL HISTORY: Sepsis COMPARISON STUDY: No previous studies for comparison. FINDINGS: Lung volumes are normal. Lungs are clear. There is no pneumothorax or pleural effusion. Prominence of the cardiac silhouette is likely technical. Mediastinal contours are normal. There is no evidence for pulmonary edema. IMPRESSION: No acute cardiopulmonary findings. ACT 112: Negative or not required by law. Electronically signed by: Eloy Phan M.D. 03/31/2022 7:38 PM Abdomen/Pelvis CT 03/31/22 18:05 CT OF THE ABDOMEN AND PELVIS WITHOUT CONTRAST CLINICAL HISTORY: left flank pain; UTI COMPARISON STUDY: No previous studies for comparison. TECHNIQUE: Axial images of the abdomen and pelvis were obtained without IV contrast. Images were reviewed in the axial, sagittal, and coronal planes. Automated exposure control was utilized for the study. A dose lowering technique was utilized adhering to the principles of ALARA. FINDINGS: Lung bases are unremarkable. A 5 mm proximal left ureteral calculus results in moderate left hydronephrosis with moderate perinephric and periureteral stranding and fluid. No additional ureteral calculi are present. There is no right hydronephrosis. There is a 2 mm calculus within lower pole of the left kidney. Evaluation of the remainder of the abdomen and pelvis is suboptimal on this unenhanced exam. There is hepatic steatosis. Mild splenomegaly is noted. Unenhanced images of the adrenal glands and pancreas are unremarkable. There is no evidence for a bowel obstruction. Small amount of fluid within the pelvis is noted. The appendix is normal. There is no acute fracture or suspicious lesion within the visualized skeletal structures. IMPRESSION: 1. 5 mm proximal left ureteral calculus which results in moderate left hydronephrosis. Moderate left perinephric and periureteral stranding and fluid could be related to the obstruction or represent a superimposed infection. 2. 2 mm left renal calculus. ACT 112: Negative or not required by law. Electronically signed by: Eloy Phan M.D. 03/31/2022 6:52 PM Code Status & VTE Plan Code Status Full code PG Care Time/CCT Total # of Minutes Spent Total Time Spent with Patient: Total time spent is greater than 50% in coordination of care (as documented) at patient's floor/unit and/or counseling patient: Coding Level of Care Code 58277 Initial Inpt Care Lvl 3 Diagnoses Obstruction of left ureteropelvic junction due to stone N20.1 Sepsis due to urinary tract infection A41.9; N39.0 Asymptomatic COVID-19 virus infection U07.1 RAS (acute kidney injury) N17.9 Hypertension I10 Hydronephrosis with obstructing calculus N13.2 Hydronephrosis of left kidney N13.30 Hypokalemia E87.6 Hypomagnesemia E83.42
[2022-03-31 20:49] LABS: Protein Urine 1+ (Negative)
[2022-03-31 20:50] LABS: RBC Urine Automated 0-4 /hpf (0-4)
--- NOTE | 2022-03-31 20:50 | Urology Consultation ---
Date of Consultation March 31, 2022 Assessment & Plan (1) Obstruction of left ureteropelvic junction due to stone: The patient has been admitted on the hospitalist service. We are proceeding as follows from a urologic perspective: There is concern that patient has underlying sepsis likely from urinary source The patient is noted to have a marked leukocytosis as well as fever. In addition she is noted to have acute kidney injury. In light of her laboratory findings and fever Dr. Ang has elected to perform an emergent cystoscopy with likely ureteral stent placement this evening Would recommend continuing intravenous fluid resuscitation Would recommend continuing broad-spectrum antibiotics. Patient has received Rocephin in the emergency department along with vancomycin. We will continue these antibiotics until culture data is available Would keep patient n.p.o. until after her procedures performed Additional recommendations be forthcoming based on operative findings and her clinical course as it unfolds. History of Present Illness Reason for Consultation: Nephrolithiasis History of Present Illness This is a 42-year-old female who presented to [facility] emergency department secondary to back pain. She notes that the pain initially began 5 days ago and got progressively worse. She has no prior history of kidney stones. The patient notes that the pain is primary located in her left flank with some radiation to her abdomen. She has had associated fevers, shakes, and chills. She denies any nausea or vomiting. The patient denies any urinary frequency or dysuria. She also denies any hematuria. It is noteworthy to mention that the patient did eat approximately 10 pretzels approximately 15 minutes prior to my arrival which was at approximately 8:45 PM. Prior to eating these pretzels she said that she really has not had much in the way of oral intake for approximately 2 days. Since arrival to the emergency department the patient has had labs and imaging which I independent reviewed. Chest x-ray showed no evidence of pneumonia. A CT scan abdomen pelvis showed the patient had a 5 mm proximal left ureteral quirino culus resulting in hydronephrosis. There is perinephric and periureteral stranding in this area. She was also noted to have a 2 mm left renal calculus. Labs include a CBC her white blood cell count was elevated 22.7. Hemoglobin, hematocrit, and platelet count were normal. Chemistry profile showed sodium was 135 with a potassium of 3.2. BUN and creatinine were 27 and 2.2. The patient did have an elevated lactic acid level at 2.4. Urinalysis is pending as well as a COVID test. At the time of my interview the patient was resting comfortably in bed and she was in no distress. Allergies Allergy/AdvReac Type Severity Reaction Status Date / Time No Known Allergies Allergy Unverified 03/31/22 19:13 Home Medications Medication Instructions Recorded Confirmed Type hydrochlorothiazide 25 mg tablet 25 mg PO DAILY 12/18/21 03/31/22 History Patient History Medical History delivery delivered Hypertension Squamous cell carcinoma Term (05/16/14) Family History Grandfather (Paternal) Cancer Myocardial infarction Hypertension Grandmother (Maternal) Cancer Grandmother (Paternal) Cancer Mother Hypertension Sister Hypertension Social History Smoking Status: Never smoker Hx Alcohol Use: Yes Alcohol type: beer, wine and hard liquor Alcohol Intake Frequency: Monthly or Less Feels Safe at Home: Yes Review of Systems Constitutional: no fever and no chills Eyes: no eye pain Ear, Nose, Mouth, Throat: no ear pain Respiratory: no cough and no dyspnea Cardiovascular: no chest pain Gastrointestinal: + abdominal pain (Radiating from left flank), + nausea and + vomiting Genitourinary: as per Subjective / HPI; no dysuria and no hematuria Musculoskeletal: + back pain (Left flank) Integumentary: no rash Neurologic: no localized weakness Physical Exam Constitutional: WD/WN, vitals as above Eyes: no conjunctival abnormality ENMT: Ears: no hearing impairment and no external ear abnormality Mouth: no oropharynx abnormality Neck: trachea midline Respiratory: normal respiratory effort; no respiratory distress and no labored breathing Cardiovascular: Rate/Rhythm: regular rate, regular rhythm and + tachycardic Vessels: dorsalis pedis pulses present Gastrointestinal (Abdomen): Soft, nondistended, minimal tenderness with palpation in the left lower quadrant. No rebound tenderness or guarding Musculoskeletal: No calf tenderness, feet are warm and nonmottled Skin: no rashes Neurologic: moves all extremities Psychiatric: A+Ox3, euthymic affect Results & Data ([place]) Vital Signs (Past 12 Hours) Vital Signs Temp Pulse Pulse Resp BP Pulse Ox O2 Del Method 03/31/22 20:03 95 H 20 115/87 95 Room Air 03/31/22 19:16 38.6 C H 03/31/22 18:41 92 H 22 95 Room Air 03/31/22 17:42 38.6 C H 102 H 26 H 100 Room Air PG Care Time/CCT Total # of Minutes Spent Total Time Spent with Patient: Total time spent is greater than 50% in coordination of care (as documented) at patient's floor/unit and/or counseling patient: Coding Level of Care Code 05872 Inpt Consult Level 5 Diagnoses Obstruction of left ureteropelvic junction due to stone N20.1
[2022-03-31] MEDS ORDERED: PHENYLEPHRINE 100MCG/ML 5ML SYR IV PRN (21:09)
[2022-03-31] MEDS ORDERED: HYDROmorphone INJ 1 MG/ML SYRINGE IV PRN (21:09)
[2022-03-31] MEDS ORDERED: LABETALOL HCL IV 5 MG/ML 20ML IV PRN (21:09)
[2022-03-31] MEDS ORDERED: ePHEDrine sulfate 50 MG/ML AMP IV PRN (21:09)
[2022-03-31] MEDS ORDERED: ONDANSETRON INJ 2 MG/ML 2 ML VIAL IV PRN (21:09)
[2022-03-31] MEDS ORDERED: ATROPINE SULFATE 0.1 MG/ML 10ML SYR IV PRN (21:09)
--- NOTE | 2022-03-31 21:12 | Anesthesiology Consultation ---
Date of Service March 31, 2022 Assessment & Plan (1) Encounter for pre-operative examination: Chart Review Chart Review: Acceptable Risk for Surgery (emergency surgery) and Patient NOT seen in Pre Admission Testing Consults Requested none History Surgery Operation Date: 03/31/22 20:45 Proposed Procedures p Cystoscopy Retrograde - Mike Ang DO Height/Weight Height: 5 ft 7 in Weight: 114.2 kg Allergies Allergy/AdvReac Type Severity Reaction Status Date / Time No Known Allergies Allergy Unverified 03/31/22 19:13 Medications Home Medications Medication Instructions Recorded Confirmed Last Taken hydrochlorothiazide 25 mg tablet 25 mg PO DAILY 12/18/21 03/31/22 03/31/22 Active Medications Generic Name Dose Route Start Last Admin Trade Name Freq PRN Reason Stop Dose Admin Vancomycin HCl 2,250 mg/ 545 mls @ 200 mls/hr 03/31/22 19:16 03/31/22 20:23 Sodium Chloride IV 03/31/22 21:59 Infused NOW ONE Infusion NPO Date Last Intake of Fluids: 03/31/22 Time Last Intake of Fluids: 20:45 Date Last Intake of Solids: 03/31/22 Time Last Intake of Solids: 20:45 Past Medical History Medical History delivery delivered Hypertension Squamous cell carcinoma Term (05/16/14) Past Family History Family History Grandfather (Paternal) Cancer Myocardial infarction Hypertension Grandmother (Maternal) Cancer Grandmother (Paternal) Cancer Mother Hypertension Sister Hypertension Social History Smoking Status: Never smoker Hx Alcohol Use: Yes Alcohol type: beer, wine and hard liquor Physical Exam Vital Signs Last Vital Signs Temp 38.6 C H 03/31/22 19:16 Pulse 95 H 03/31/22 20:03 Resp 20 03/31/22 20:03 BP 115/87 03/31/22 20:03 Pulse Ox 95 03/31/22 20:03 O2 Del Method 03/31/22 21:09 Testing Laboratory Results 03/31/22 18:10 03/31/22 18:10 Urine Color Yellow 03/31/22 20:24 Urine Appearance Clear (Clear) 03/31/22 20:24 Urine pH 7.5 (4.5-7.5) 03/31/22 20:24 Ur Specific [place] 1.010 (1.000-1.030) 03/31/22 20:24 Urine Protein 1+ (Negative) H 03/31/22 20:24 Urine Glucose (UA) Negative (Negative) 03/31/22 20:24 Urine Ketones Trace (Negative) H 03/31/22 20:24 Urine Nitrite Negative (Negative) 03/31/22 20:24 Ur Leukocyte Esterase Negative (Negative) 03/31/22 20:24 Urine WBC (Auto) 1-5 /hpf (0-5) 03/31/22 20:24 Urine RBC (Auto) 0-4 /hpf (0-4) 03/31/22 20:24 U Hyaline Cast (Auto) 0 /lpf (0-5) 03/31/22 20:24 U Epithel Cells (Auto) 10-20 /lpf (0-5) H 03/31/22 20:24 Urine Bacteria (Auto) Negative (Negative) 03/31/22 20:24 Urine Test Negative (Negative) 03/31/22 20:24 03/31/22 20:24 Urine Test Negative Electrocardiogram Date: 03/31/22 Findings: + NSR @ (92) septal infarct Chest X-Ray Date: 03/31/22 XR chest 1V portable CLINICAL HISTORY: Sepsis COMPARISON STUDY: No previous studies for comparison. FINDINGS: Lung volumes are normal. Lungs are clear. There is no pneumothorax or pleural effusion. Prominence of the cardiac silhouette is likely technical. Mediastinal contours are normal. There is no evidence for pulmonary edema. IMPRESSION: No acute cardiopulmonary findings. ACT 112: Negative or not required by law. Electronically signed by: Eloy hPan M.D. 03/31/2022 7:[address] THE ABDOMEN AND PELVIS WITHOUT CONTRAST CLINICAL HISTORY: left flank pain; UTI COMPARISON STUDY: No previous studies for comparison. TECHNIQUE: Axial images of the abdomen and pelvis were obtained without IV contrast. Images were reviewed in the axial, sagittal, and coronal planes. Automated exposure control was utilized for the study. A dose lowering technique was utilized adhering to the principles of ALARA. FINDINGS: Lung bases are unremarkable. A 5 mm proximal left ureteral calculus results in moderate left hydronephrosis with moderate perinephric and periureteral stranding and fluid. No additional ureteral calculi are present. There is no right hydronephrosis. There is a 2 mm calculus within lower pole of the left kidney. Evaluation of the remainder of the abdomen and pelvis is suboptimal on this unenhanced exam. There is hepatic steatosis. Mild splenomegaly is noted. Unenhanced images of the adrenal glands and pancreas are unremarkable. There is no evidence for a bowel obstruction. Small amount of fluid within the pelvis is noted. The appendix is normal. There is no acute fracture or suspicious lesion within the visualized skeletal structures. IMPRESSION: 1. 5 mm proximal left ureteral calculus which results in moderate left hydronephrosis. Moderate left perinephric and periureteral stranding and fluid could be related to the obstruction or represent a superimposed infection. 2. 2 mm left renal calculus. ACT 112: Negative or not required by law. Electronically signed by: Eloy Phan M.D. 03/31/2022 6:52 PM
[2022-03-31] MEDS ORDERED: PROPOFOL IV EMULSION 10 MG/ML 20 ML VIAL IV ONE (21:52)
[2022-03-31] MEDS ORDERED: LIDOCAINE 2% MPF LOCAL 5 ML VIAL INFIL ONE (21:52)
[2022-03-31] MEDS ORDERED: MIDAZOLAM HCL 1 MG/ML 2ML VIAL ONE (21:53)
[2022-03-31] MEDS ORDERED: fentaNYL citrate 100 MCG/2 ML VIAL ONE ×2 (21:53→22:52)
[2022-03-31] MEDS ORDERED: DIATRIZOATE MEGLUMINE 30% 100ML VIAL INSTIL PRN (21:58)
--- NOTE | 2022-03-31 22:39 | Operative Report ---
PG Post Operative Report Pre & Post Diagnosis Operation Date: 03/31/22 20:45 Pre-Op Diagnosis: left kidney infection Post-Op Diagnosis: left kidney infection I identified the patient and participated in the time-out.: Yes Procedure Pre-Op Dx: Obstructing Left Stone with Sepsis Post-Op Dx: Same Operation Date: 03/31/22 20:45 Actual Procedures p Cystoscopy with Left Urine Aspiration, Left Retrograde Pyelogram, and Insertion left ureteral stent(Left) - Mike Ang DO Surgeon Mike Ang, II, DO Geotechnical Field Technician None Estimated Blood Loss 1 Findings Consistent with Post-Op Diagnosis Stent placed in good position. Significant dark cloudy urine from left kidney Specimens Urine Left Kidney Drains 6 Fr Multilength Anesthesia Type MAC Complications none Disposition Disposition: Recovery Room Indications Patient with obstruction. Risks and benefits discussed at length. Description of Procedure Patient was consented and brought back to the operating room. Patient was placed under anesthesia in the supine position and moved to the dorsal lithotomy position. Patient was prepped and draped in the regular sterile fashion. A time out was completed. A 30degree Cystoscope was placed into the bladder and the entire bladder was examined. The UO's were identified. The UO was cannulized with a catheter, urine was aspirated from the renal pelvis, and a retrograde pyelogram was completed. Urine from the left kidney was sent for culture. A wire was then placed. With the wire in place, a 6 Fr Double J stent was placed. It was confirmed with fluoroscopy. With the stent in place, the bladder was emptied. The scope was removed. The patient was cleaned, aroused from anesthesia, and transferred to the pacu in stable condition having tolerated the procedure well with no complications. I was present and participated in all aspects of the procedure. The patient will be monitored in the PACU until transferred. Plan to monitor post op on broad spectrum abx with supportive care. Likely 1-2 weeks with Antibiotics for Sepsis with Pyelonephritis. Plan stone treatment once infection cleared. I attest to the content of the Intraoperative Record and any orders documented therein. Any exceptions are noted below.
[2022-03-31] MEDS: fentaNYL citrate 100 MCG/2 ML VIAL IV PRN ×2 (22:59→23:05)
--- NOTE | 2022-03-31 23:04 | Anesthesiology Progress Note ---
Date of Service March 31, 2022 Anesthesia Post Procedure Vital Signs Vital Signs: Temp Pulse Pulse Resp BP Pulse Ox O2 Del Method 03/31/22 21:52 90 20 113/76 98 Room Air 03/31/22 21:09 Room Air 03/31/22 20:03 95 H 20 115/87 95 Room Air 03/31/22 19:16 38.6 C H 03/31/22 18:41 92 H 22 95 Room Air 03/31/22 17:42 38.6 C H 102 H 26 H 100 Room Air Transfer of Care Handoff Completed per policy Notes Mental Status: alert / awake / arousable Patient Amnestic to Procedure: Yes Nausea / Vomiting: adequately controlled Pain: adequately controlled Airway Patency, RR, SpO2: stable & adequate BP & HR: stable & adequate Hydration State: stable & adequate Anesthetic Complications: no major complications apparent and Pt Satisfied with anesthetic care Notes: The patient is awake and comfortable. She is febrile but her other vital signs are stable.
[2022-04-01] MEDS ORDERED: POTASSIUM CHLORIDE / WTR 10 MEQ/100 ML PLCT IV ONE (00:24)
[2022-04-01] MEDS: SODIUM CHLORIDE 0.9% 1000ML 1,000 ML IV SCH ×4 (01:16→23:34)
[2022-04-01] MEDS: MAGNESIUM SULFATE / D5W 1 GM/100 ML BAG IV SCH ×2 (01:17→03:46)
[2022-04-01] MEDS: FAMOTIDINE 20 MG in SYRINGE 3 ML IV SCH ×3 (01:17→21:13)
[2022-04-01] MEDS ORDERED: ACETAMINOPHEN 500 MG TAB PO STA (01:35)
[2022-04-01] MEDS ORDERED: ACETAMINOPHEN 500 MG TAB ONE (01:50)
[2022-04-01] MEDS: MoRPHine SULFATE 2 MG/ML CARP IV PRN ×4 (06:40→21:13)
[2022-04-01] MEDS: cefTRIAXone SODIUM 2,000 MG in DEXTROSE 5% 50 ML IV SCH (07:37)
[2022-04-01] MEDS ORDERED: ACETAMINOPHEN 325 MG TAB PO PRN (08:00)
[2022-04-01] MEDS: ONDANSETRON INJ 2 MG/ML 2 ML VIAL IV PRN (08:12)
[2022-04-01 08:53] LABS: Albumin Globulin Ratio 1.1 (0.9-2); Albumin Level 3.6 gm/dl (3.4-5.0); BUN Creatinine Ratio 12.3 (10-20); Bilirubin,Total 1.4 mg/dl (0.2-1.0); Calcium 8.2 mg/dl (8.5-10.1); Creatinine Clr Calc Pharmacy 53.3 ml/min; Est GFR (African American) 36.4 ml/min; Est GFR (Non-African American) 31.4 ml/min; Globulin 3.2 gm/dl (2.5-4.0); Magnesium 2.2 mg/dl (1.7-2.4); Potassium 3.5 mmol/L (3.5-5.1); Total Protein 6.8 gm/dl (6.0-8.3)
[2022-04-01 08:55] LABS: Basophils # (auto) 0.07 K/uL (0-0.2); Basophils % (auto) 0.4 %; Eosinophils # (auto) 0.01 K/uL (0-0.50); Eosinophils % (auto) 0.1 %; Hematocrit (blood only) 37.5 % (34.1-44.9); Hemoglobin 13.8 g/dl (12.0-16.0); Immature Granulocytes # (auto) 0.39 K/uL (0.00-0.02); Immature Granulocytes % (auto) 2.4 %; Lymphocytes # (auto) 0.64 K/uL (1.2-3.4); Mean Corpuscular Hemoglobin 32.2 pg (25.0-34.0); Mean Corpuscular Hgb Conc 36.8 g/dL (32.0-36.0); Mean Corpuscular Volume 87.6 fL (80.0-100.0); Mean Platelet Volume 10.4 fL (9.4-12.3); Monocytes # (auto) 0.45 K/uL (0.24-0.82); Monocytes % (auto) 2.8 %; Neutrophils # (auto) 14.53 K/uL (1.4-6.5); Neutrophils % (auto) 90.3 %; Platelet Count 155 K/uL (130-400); RDW Coefficient of Variation 13.2 % (11.5-14.5); RDW Standard Deviation 41.5 fL (36.4-46.3); Red Blood Count 4.28 M/uL (3.93-5.22); Toxic Vacuolation 1+; White Blood Count 16.09 K/ul (4.8-10.8)
[2022-04-01 09:13] LABS: A calco-baum cmplx NotReported Not Detected (NotDetected); Bact fragilis Not Reported Not Detected (NotDetected); C auris Not Reported Not Detected (NotDetected); CTX-M Resistant Gene Not Detected (NotDetected); Calbicans Not Reported Not Detected (NotDetected); Candida glabrata Not Reported Not Detected (NotDetected); Candida krusei Not Reported Not Detected (NotDetected); Cneoformans/gatti Not Reported Not Detected (NotDetected); Cparapsilosis Not Reported Not Detected (NotDetected); Ctropicalis Not Reported Not Detected (NotDetected); E cloacae compx Not Reported Not Detected (NotDetected); Efaecalis Not Reported Not Detected (NotDetected); Efaecium Not Reported Not Detected (NotDetected); Enterobacterales Not Reported DETECTED (NotDetected); Escherichia coli Not Reported DETECTED (NotDetected); H influenzae Not Reported Not Detected (NotDetected); IMP Resistant Gene Not Detected (NotDetected); K aerogenes Not Reported Not Detected (NotDetected); KPC Resistant Gene Not Detected (NotDetected); Koxytoca Not Reported Not Detected (NotDetected); Kpneumoniae grp Not Reported Not Detected (NotDetected); Lmonocyt Not Reported Not Detected (NotDetected); N meningitidis Not Reported Not Detected (NotDetected); NDM Resistant Gene Not Detected (NotDetected); OXA 48 Like Resistant Gene Not Detected (NotDetected); P aeruginosa Not Reported Not Detected (NotDetected); Proteus spp Not Reported Not Detected (NotDetected); Salmonella spp Not Reported Not Detected (NotDetected); Smarcescens Not Reported Not Detected (NotDetected); Staph lugdunensis Not Reported Not Detected (NotDetected); Staph spp. Not Reported Not Detected (NotDetected); Staphaureus Not Reported Not Detected (NotDetected); Staphepi Not Reported Not Detected (NotDetected); Stenmaltophilia Not Reported Not Detected (NotDetected); Strep agal(GrpB) Not Reported Not Detected (NotDetected); Strep pneum Not Reported Not Detected (NotDetected); Strep pyog (GrpA) Not Reported Not Detected (NotDetected); Strep spp Not Reported Not Detected (NotDetected); VIM Resistant Gene Not Detected (NotDetected); mcr-1 Colistin Resistant Gene Not Detected (NotDetected)
--- NOTE | 2022-04-01 09:21 | Fluoroscopy Report ---
FL retrograde includes kub HISTORY: 42 years-old Female LEFT CYSTO/STENT left-sided cystourethrogram COMPARISON: CT abdomen and pelvis of same day TECHNIQUE: 4 spot fluoroscopic images of the abdomen and pelvis were obtained utilizing 8.4 seconds f luoroscopy time FINDINGS: Retrograde injection of contrast into the left ureter renal collecting system demonstrates persistent hydronephrosis with blunting of the calyces. Subsequent images demonstrate placement of a left urete ral stent which appears to be in satisfactory positioning. IMPRESSION: Fluoroscopic assistance as above. ACT 112: Negative or not required by law. The above report was generated using voice recognition software. It may contain grammatical, syntax o r spelling errors. Electronically signed by: Grayson Jennings M.D. 04/01/2022 9:20 AM
[2022-04-01 09:48] LABS: Enterobacterales DETECTED (NotDetected)
--- NOTE | 2022-04-01 15:54 | Urology Progress Note ---
Date of Service April 01, 2022 Assessment & Plan (1) Sepsis due to urinary tract infection: (2) Calculus of left ureter: Plan Gradually progressing after emergent stent placement yesterday secondary to sepsis and an obstructing left ureteral calculus Urine and blood cultures are positive for gram-negative bacilli but we do not yet have speciation or sensitivities Likely maintain hospitalization for 24 more hours until we can determine appropriate outpatient antibiotics She will have to follow-up as an outpatient for ultimate treatment of her stone Admission and Anticipated Discharge Date Admission Date: March 31, 2022 Subjective Still quite uncomfortable today Intermittent fevers Tachycardic Left flank pain Dysuria is gradually resolving Physical Exam Physical Exam: Somewhat uncomfortable appearing Abdomen soft, minimally tender on the left flank Results & Data ([facility]) Vital Signs (Past 12 Hours) Vital Signs Temp Pulse Pulse Resp BP Pulse Ox O2 Del Method 04/01/22 11:40 37 C 108 H 21 121/83 95 Room Air 04/01/22 09:08 95 H 04/01/22 07:36 37.1 C 102 H 18 120/83 98 Room Air 04/01/22 06:33 38 C H 101 H 22 130/95 98 Room Air PG Care Time/CCT Total # of Minutes Spent Total Time Spent with Patient: Total time spent is greater than 50% in coordination of care (as documented) at patient's floor/unit and/or counseling patient: Coding Level of Care Code 68693 Subseq Hosp Care Lvl 2 Diagnoses Sepsis due to urinary tract infection A41.9; N39.0 Calculus of left ureter N20.1
--- NOTE | 2022-04-01 22:15 | Hospitalist Progress Note ---
Date of Service April 01, 2022 Assessment & Plan (1) Obstruction of left ureteropelvic junction due to stone: Plan: Gram negative bacilli in all sets of blood cultures 5 mm proximal left ureteral calculus/moderate left hydronephrosis/sepsis due to UTI Ceftriaxone 2 g IV daily awaiting cultures Acetaminophen 650 mg p.o. every 6 hours as needed mild pain or fever Morphine sulfate 2 mg IV every 3 hours as needed moderate pain Morphine sulfate 4 mg IV every 3 hours as needed for severe pain (2) Sepsis due to urinary tract infection: Plan: as above (3) Asymptomatic COVID-19 virus infection: Plan: COVID-19 infection found on routine screening for admission Patient be placed on COVID-19 precautions, however, is asymptomatic and does not require treatment. She would like to qualify for remdesivir due to present kidney function, it would not be advisable to give dexamethasone due to current septic state Fever more likely due to complicated UTI, will monitor inflammatory markers (4) RAS (acute kidney injury): Plan: Acute kidney injury/hypokalemia/hypomagnesemia- Potassium 3.2, magnesium 1.4 and creatinine 2.22 Give KCl 10 mEq IV x1 Magnesium sulfate 2 g IV Status post 1500 mils in the ED of normal saline Continue NSS at 125 MLS per hour Repeat BMP and magnesium levels in a.m. Hold HCTZ (5) Hypertension: Plan: Hold HCTZ due to associated hypokalemia, hypomagnesemia and RAS (6) Hydronephrosis with obstructing calculus: (7) Hydronephrosis of left kidney: (8) Hypokalemia: (9) Hypomagnesemia: Admission and Anticipated Discharge Date Admission Date: March 31, 2022 Subjective 42 yo female reports having fevers, She has no new complaints. No SOB Review of Systems Review of Systems: All systems reviewed & are unremarkable except as noted in HPI & below Physical Exam Physical Exam: The patient is awake, alert and oriented 3, well developed and well nourished, normocephalic and atraumatic, lying in bed and in no acute distress. HEENT--PERRL, EOMI, mucous membranes and oropharynx dry. Neck--supple. No JVD. No bruits. Thyroid normal, trachea midline, no adenopathy. Heart--normal S1 and S2. No murmurs, rubs or gallops. Lungs--clear bilaterally, no respiratory distress, no accessory muscle use. Abdomen--normal bowel sounds and soft. Nontender. Nondistended, no hernias or masses, no organomegaly. Extremities--no cyanosis or clubbing. No edema. There are good distal pulses b/l. Dermatologic--normal skin turgor, normal color, no abnormal lymph nodes, no rash. Neurologic--cranial nerves II through XII grossly intact. Rheumatologic--normal range of motion. Psychiatric--normal affect. Results & Data Results & Data ([facility]) Vital Signs (Past 12 Hours) Vital Signs Temp Pulse Pulse Resp BP BP Pulse Ox 04/01/22 21:02 37.7 C H 104 H 24 97 04/01/22 18:44 39.6 C H 109 H 18 132/88 96 04/01/22 17:41 102 H 04/01/22 16:41 36.7 C 107 H 19 138/86 99 04/01/22 11:40 37 C 108 H 21 121/83 95 O2 Del Method 04/01/22 21:02 Room Air 04/01/22 18:44 Room Air 04/01/22 17:41 04/01/22 16:41 Room Air 04/01/22 11:40 Room Air PG Care Time/CCT Total # of Minutes Spent Total Time Spent with Patient: Total time spent is greater than 50% in coordination of care (as documented) at patient's floor/unit and/or counseling patient: Coding Level of Care Code 77018 Subseq Hosp Care Lvl 3 Diagnoses Obstruction of left ureteropelvic junction due to stone N20.1 Sepsis due to urinary tract infection A41.9; N39.0 Asymptomatic COVID-19 virus infection U07.1 RAS (acute kidney injury) N17.9 Hypertension I10 Hydronephrosis with obstructing calculus N13.2 Hydronephrosis of left kidney N13.30 Hypokalemia E87.6 Hypomagnesemia E83.42 Time Spent (min) 35
[2022-04-02] MEDS: ACETAMINOPHEN 325 MG TAB PO PRN ×5 (00:04→20:37)
--- NOTE | 2022-04-02 05:55 | Electrocardiogram Report ---
Test Reason : Blood Pressure : / mmHG Vent. Rate : 092 BPM Atrial Rate : 092 BPM P-R Int : 146 ms QRS Dur : 088 ms QT Int : 364 ms P-R-T Axes : 037 -21 -10 degrees QTc Int : 450 ms Poor data quality, interpretation may be adversely affected Normal sinus rhythm Possible Septal infarct , age undetermined Poor R wave progression, consider anterior WI vs. lead placement vs. LVH Nonspecific T wave abnormality Abnormal ECG No previous ECGs available Confirmed by Sylvester Simons ([id number]) on 04/02/2022 5:55:24 AM Referred By: Divina Berrios Confirmed By:Sylvester Simons
[2022-04-02 07:59] LABS: Hematocrit (blood only) 31.1 % (34.1-44.9); Hemoglobin 11.2 g/dl (12.0-16.0); Mean Corpuscular Hemoglobin 31.6 pg (25.0-34.0); Mean Corpuscular Volume 87.9 fL (80.0-100.0); Mean Platelet Volume 10.4 fL (9.4-12.3); Platelet Count 138 K/uL (130-400); RDW Coefficient of Variation 12.7 % (11.5-14.5); RDW Standard Deviation 41.2 fL (36.4-46.3); Red Blood Count 3.54 M/uL (3.93-5.22); White Blood Count 10.86 K/ul (4.8-10.8)
[2022-04-02 08:00] LABS: Albumin Level 3.2 gm/dl (3.4-5.0); BUN Creatinine Ratio 10.7 (10-20); Basophils # (auto) 0.02 K/uL (0-0.2); Basophils % (auto) 0.2 %; Bilirubin,Total 1.1 mg/dl (0.2-1.0); Calcium 7.5 mg/dl (8.5-10.1); Creatinine Clr Calc Pharmacy 62.8 ml/min; Eosinophils # (auto) 0.02 K/uL (0-0.50); Eosinophils % (auto) 0.2 %; Est GFR (African American) 43.6 ml/min; Est GFR (Non-African American) 37.6 ml/min; Globulin 3.2 gm/dl (2.5-4.0); Immature Granulocytes # (auto) 0.14 K/uL (0.00-0.02); Immature Granulocytes % (auto) 1.3 %; Lymphocytes # (auto) 0.69 K/uL (1.2-3.4); Lymphocytes % (auto) 6.4 %; Magnesium 2.2 mg/dl (1.7-2.4); Monocytes # (auto) 0.64 K/uL (0.24-0.82); Monocytes % (auto) 5.9 %; Neutrophils # (auto) 9.35 K/uL (1.4-6.5); Potassium 3.3 mmol/L (3.5-5.1); RBC Morphology Unremarkable; Total Protein 6.4 gm/dl (6.0-8.3)
[2022-04-02] MEDS: cefTRIAXone SODIUM 2,000 MG in DEXTROSE 5% 50 ML IV SCH (08:07)
[2022-04-02] MEDS: SODIUM CHLORIDE 0.9% 1000ML 1,000 ML IV SCH ×2 (08:07→17:49)
[2022-04-02] MEDS: FAMOTIDINE 20 MG in SYRINGE 3 ML IV SCH ×2 (09:37→20:37)
[2022-04-02] MEDS: MoRPHine SULFATE 2 MG/ML CARP IV PRN (09:40)
[2022-04-02] MEDS: ONDANSETRON INJ 2 MG/ML 2 ML VIAL IV PRN (09:46)
[2022-04-02 09:57] LABS: C Reactive Protein 44.12 mg/dl (0-0.5)
--- NOTE | 2022-04-02 10:43 | Urology Progress Note ---
Date of Service April 02, 2022 Assessment & Plan (1) Sepsis due to urinary tract infection: (2) Calculus of left ureter: Plan: Pt POD #2 s/p emergent left ureteral stent placement secondary to sepsis and an obstructing left ureteral calculus. Continues to have intermittent fevers, Temp 38.9 earlier this AM. Lab work reviewed - Creatinine and WBC trending down. Urine and blood cultures are positive for gram-negative bacilli but no speciation or sensitivities yet. Continue broad spectrum antibiotics and narrow per sensitivities. She is having expected stent related discomfort. Recommend addition of Tamsulosin, prn Pyridium, and prn Oxybutynin for stent management. Repeat blood cultures are pending. Expected clinical course reviewed, all questions answered. Will arrange outpatient follow-up with our service to discuss definitive stone treatment after infection is resolved. will sign off. Thank you for allowing us to participate in the acute care of Ms. Camarillo. Please reconsult us with additional questions, concerns or changes in patient status. Admission and Anticipated Discharge Date Admission Date: March 31, 2022 Supervising Physician Co-Signing Physician Notes I have discussed Ms. Camarillo's case with VERNON Leiva and agree with the above documentation. Urinary tract to be decompressed with ureteral stent in place. We will hold off definitive stone treatment until her infection is completely treated. We will arrange outpatient follow-up to coordinate further stone management. Subjective Patient awake and sitting up in bed. Subjectively uncomfortable with ill feelings. Reports intermittent fever/chills. Temp was 38.9 this am at ~0500. She has some left flank discomfort. Voiding spontaneously, dysuria has resolved and hematuria clearing. Nausea, low appetite. Review of Systems Constitutional: as per Subjective / HPI Gastrointestinal: as per Subjective / HPI Genitourinary: as per Subjective / HPI Physical Exam Constitutional: well developed and well nourished; no acute distress uncomfortable appearing Respiratory: normal respiratory effort; no respiratory distress and no labored breathing Gastrointestinal (Abdomen): Percussion/Palpation: abdomen soft; abdomen nontender Musculoskeletal: Extremities: extremities normal to inspection Neurologic: moves all extremities and awake Psychiatric: Orientation: alert and oriented x 3 Results & Data ([facility]) Vital Signs (Past 12 Hours) Vital Signs Temp Pulse Pulse Resp BP Pulse Ox O2 Del Method 04/02/22 07:44 37.8 C H 90 18 130/83 97 Room Air 04/02/22 07:21 102 H 04/02/22 05:07 38.9 C H 105 H 24 97 Room Air 04/02/22 03:12 36.8 C 93 H 18 114/77 93 04/01/22 23:00 102 H 04/01/22 23:32 39.4 C H 108 H 22 130/92 97 Room Air PG Care Time/CCT Total # of Minutes Spent Total Time Spent with Patient: Total time spent is greater than 50% in coordination of care (as documented) at patient's floor/unit and/or counseling patient: Coding Level of Care Code 91404 Subseq Hosp Care Lvl 2 Diagnoses Sepsis due to urinary tract infection A41.9; N39.0 Calculus of left ureter N20.1
[2022-04-02] MEDS: ACYCLOVIR 5% OINT 15 GM TUBE EXT SCH ×2 (13:48→20:40)
[2022-04-02] MEDS ORDERED: PHENAZOPYRIDINE HCL 100 MG TAB PO PRN (15:42)
--- NOTE | 2022-04-02 16:05 | Hospitalist Progress Note ---
Date of Service April 02, 2022 Assessment & Plan (1) Obstruction of left ureteropelvic junction due to stone: Plan: Found to have 5 mm proximal left ureteral calculus/moderate left hydronephrosis Day 2 s/p emergency left urtereal stent palcement Cultures growing Gram negative bacilli in all sets of blood cultures, full characterization pending Ceftriaxone 2 g IV daily, continue for now Acetaminophen 650 mg p.o. every 6 hours as needed mild pain or fever Morphine sulfate 2 mg IV every 3 hours as needed moderate pain Morphine sulfate 4 mg IV every 3 hours as needed for severe pain (2) Sepsis due to urinary tract infection: Plan: as above Continue empiric antibiotics clinically much improved inflammatory markers improving (3) Asymptomatic COVID-19 virus infection: Plan: COVID-19 infection found on routine screening for admission Patient be placed on COVID-19 precautions, however, is asymptomatic and does not require treatment. (4) RAS (acute kidney injury): Plan: Acute kidney injury/hypokalemia/hypomagnesemia- Potassium 3.2, magnesium 1.4 and creatinine 2.22 Give KCl 10 mEq IV x1 Magnesium sulfate 2 g IV Status post 1500 mils in the ED of normal saline Continue NSS at 125 MLS per hour Repeat BMP and magnesium levels in a.m. Hold HCTZ (5) Hypertension: Plan: Hold HCTZ due to associated hypokalemia, hypomagnesemia and RAS (6) Hydronephrosis with obstructing calculus: (7) Hydronephrosis of left kidney: (8) Hypokalemia: (9) Hypomagnesemia: Admission and Anticipated Discharge Date Admission Date: March 31, 2022 Subjective patient seen and examined, still complains of left loin pain and discomfort Review of Systems Review of Systems: All systems reviewed are negative, apart from the ones contained in the history. Physical Exam Physical Exam: The patient is awake, alert and oriented 3, well developed and well nourished, normocephalic and atraumatic, lying in bed and in no acute distress. HEENT--PERRL, EOMI, mucous membranes and oropharynx mildly dry Neck--supple. No JVD. No bruits. Thyroid normal, trachea midline, no adenopathy. Heart--normal S1 and S2. No murmurs, rubs or gallops. Lungs--clear bilaterally, no respiratory distress, no accessory muscle use. Abdomen--normal bowel sounds and soft. Mild epigastric and left sided abdominal pain Extremities--no cyanosis or clubbing. No edema. Dermatologic--normal skin turgor, normal color, no abnormal lymph nodes, no rash. Neurologic--cranial nerves II through XII grossly intact. Rheumatologic--normal range of motion. Psychiatric--normal affect. Results & Data Results & Data ([facility]) Vital Signs (Past 12 Hours) Vital Signs Temp Pulse Pulse Resp BP Pulse Ox O2 Del Method 04/02/22 12:45 100.0 F H 108 H 18 132/88 98 Room Air 04/02/22 07:44 100.0 F H 90 18 130/83 97 Room Air 04/02/22 07:21 102 H 04/02/22 05:07 102.0 F H 105 H 24 97 Room Air PG Care Time/CCT Total # of Minutes Spent Total Time Spent with Patient: Total time spent is greater than 50% in coordination of care (as documented) at patient's floor/unit and/or counseling patient: Coding Level of Care Code 56124 Subseq Hosp Care Lvl 2 Diagnoses Obstruction of left ureteropelvic junction due to stone N20.1 Sepsis due to urinary tract infection A41.9; N39.0 Asymptomatic COVID-19 virus infection U07.1 RAS (acute kidney injury) N17.9 Hypertension I10 Hydronephrosis with obstructing calculus N13.2 Hydronephrosis of left kidney N13.30 Hypokalemia E87.6 Hypomagnesemia E83.42 Time Spent (min) 35
[2022-04-02] MEDS: OXYBUTYNIN CHLORIDE 5 MG TAB PO SCH (20:38)
[2022-04-02] MEDS ORDERED: TAMSULOSIN HCL 0.4 MG CAP PO SCH (21:00)
[2022-04-03] MEDS: ACYCLOVIR 5% OINT 15 GM TUBE EXT SCH ×2 (01:33→07:15)
[2022-04-03] MEDS: SODIUM CHLORIDE 0.9% 1000ML 1,000 ML IV SCH ×2 (01:40→08:59)
[2022-04-03] MEDS: ACETAMINOPHEN 325 MG TAB PO PRN (04:14)
[2022-04-03 08:07] LABS: Hematocrit (blood only) 29.4 % (34.1-44.9); Hemoglobin 10.7 g/dl (12.0-16.0); Mean Corpuscular Hemoglobin 31.6 pg (25.0-34.0); Mean Corpuscular Hgb Conc 36.4 g/dL (32.0-36.0); Mean Corpuscular Volume 86.7 fL (80.0-100.0); Mean Platelet Volume 10.1 fL (9.4-12.3); Platelet Count 147 K/uL (130-400); RDW Coefficient of Variation 12.7 % (11.5-14.5); RDW Standard Deviation 40.1 fL (36.4-46.3); Red Blood Count 3.39 M/uL (3.93-5.22); White Blood Count 10.37 K/ul (4.8-10.8)
[2022-04-03 08:29] LABS: Basophils # (auto) 0.03 K/uL (0-0.2); Basophils % (auto) 0.3 %; Eosinophils # (auto) 0.06 K/uL (0-0.50); Eosinophils % (auto) 0.6 %; Immature Granulocytes # (auto) 0.12 K/uL (0.00-0.02); Immature Granulocytes % (auto) 1.2 %; Lymphocytes # (auto) 1.06 K/uL (1.2-3.4); Lymphocytes % (auto) 10.2 %; Monocytes # (auto) 1.03 K/uL (0.24-0.82); Monocytes % (auto) 9.9 %; Neutrophils # (auto) 8.07 K/uL (1.4-6.5); Neutrophils % (auto) 77.8 %
[2022-04-03 08:45] LABS: Albumin Globulin Ratio 0.9 (0.9-2); BUN Creatinine Ratio 11.5 (10-20); Bilirubin,Total 0.8 mg/dl (0.2-1.0); Calcium 7.8 mg/dl (8.5-10.1); Creatinine Clr Calc Pharmacy 71.4 ml/min; Est GFR (African American) 50.8 ml/min; Est GFR (Non-African American) 43.8 ml/min; Globulin 3.4 gm/dl (2.5-4.0); Magnesium 2.3 mg/dl (1.7-2.4); Potassium 3.3 mmol/L (3.5-5.1); Total Protein 6.4 gm/dl (6.0-8.3)
[2022-04-03] MEDS: FAMOTIDINE 20 MG in SYRINGE 3 ML IV SCH (08:59)
[2022-04-03] MEDS: cefTRIAXone SODIUM 2,000 MG in DEXTROSE 5% 50 ML IV SCH (08:59)
[2022-04-03] MEDS: OXYBUTYNIN CHLORIDE 5 MG TAB PO SCH (09:00)
[2022-04-03] MEDS ORDERED: POTASSIUM CHLORIDE CRTAB 20 MEQ TABCR PO STA (11:42)
--- NOTE | 2022-04-03 14:20 | Discharge Summary ---
Date of Service April 03, 2022 Admission HPI Per Admitting Provider The patient is a 42-year-old female with a past medical history of hypertension, acne, previous , DSAP and vitamin D deficiency. She presents to the emergency department with symptoms as noted above. Work-up in the emergency department included the following abnormal laboratories: WBC 22.27, potassium 3.2, creatinine 2.22, magnesium 1.4, total bilirubin 2.2, direct bilirubin 0.[address] scan of abdomen and pelvis showed a 5 mm proximal obstructing left ureteral calculus, with moderate left hydro ureteral nephrosis with adjacent stranding. Principal Diagnosis left ureteral stone, sepsis due to pyelonephritis Discharge Exam The patient is awake, alert and oriented 3, well developed and well nourished, normocephalic and atraumatic, lying in bed and in no acute distress. HEENT--PERRL, EOMI, mucous membranes and oropharynx mildly dry Neck--supple. No JVD. No bruits. Thyroid normal, trachea midline, no adenopathy. Heart--normal S1 and S2. No murmurs, rubs or gallops. Lungs--clear bilaterally, no respiratory distress, no accessory muscle use. Abdomen--normal bowel sounds and soft. Mild epigastric and left sided abdominal pain Extremities--no cyanosis or clubbing. No edema. Dermatologic--normal skin turgor, normal color, no abnormal lymph nodes, no rash. Neurologic--cranial nerves II through XII grossly intact. Rheumatologic--normal range of motion. Psychiatric--normal affect. Discharge Data Allergies Allergy/AdvReac Type Severity Reaction Status Date / Time No Known Allergies Allergy Unverified 03/31/22 19:13 Consultations 03/31/22 20:26 ED Decision to Admit Stat Procedures Performed Operation Date: 03/31/22 20:45 Actual Procedures p Cystoscopy, Retrograde, Insertion left ureteral stent(Left) - Mike Ang, Ordered Studies 03/31/22 18:05 CT Abd and Pelvis [CT abd pelvis wo con] Stat 03/31/22 20:59 FL retrograde includes kub Routine Hospital Course (1) Obstruction of left ureteropelvic junction due to stone: Found to have 5 mm proximal left ureteral calculus/moderate left hydronephrosis Day 3 s/p emergency left urtereal stent palcement Cultures growing klebsiella, pansensistive Ceftriaxone 2 g IV daily, continue for now D/c on PO Levaquin for 5 days (2) Sepsis due to urinary tract infection: as above Continue empiric antibiotics clinically much improved inflammatory markers improving (3) Asymptomatic COVID-19 virus infection: COVID-19 infection found on routine screening for admission Patient be placed on COVID-19 precautions, however, is asymptomatic and does not require treatment. (4) RAS (acute kidney injury): Acute kidney injury/hypokalemia/hypomagnesemia- Potassium 3.2, magnesium 1.4 and creatinine 2.22 Give KCl 10 mEq IV x1 Magnesium sulfate 2 g IV Status post 1500 mils in the ED of normal saline Continue NSS at 125 MLS per hour Repeat BMP and magnesium levels in a.m. Hold HCTZ (5) Hypertension: Hold HCTZ due to associated hypokalemia, hypomagnesemia and RAS (6) Hydronephrosis with obstructing calculus: (7) Hydronephrosis of left kidney: (8) Hypokalemia: (9) Hypomagnesemia: Total Time Total Time Spent Total Time Spent (In Minutes): 35 Discharge Plan Discharge Items Patient Disposition: Home - Self-Care Reason For Visit: INFECTED KIDNEY STONE, PYELO, SEPSIS Discharge Diagnosis: sepsis from pyelonephritis, left ureteral stone, covid infection Activity: Resume your previous activity Non-emergency contact: Primary Care Provider and Urologist Call non-emergency contact if: you have any medication questions Follow-up/Referrals: Divina Berrios CRNP [Primary Care Provider] - 04/14/22 3:50 pm (with Dr. Lilly) Diet: Regular Addtl Attending Provider Instructions: please make appointment to follow up with your Urologist Pending Studies at Discharge: No Stand-Alone Forms: [employer] Equipment, Smoking Cessation Medications and DC Order Prescriptions: New tamsulosin 0.4 mg Capsule 0.4 mg PO HS 30 Days Qty: 30 0RF phenazopyridine [Pyridium] 100 mg Tablet 100 mg PO TID 30 Days Qty: 90 0RF oxybutynin chloride 5 mg Tablet 5 mg PO BID 30 Days Qty: 60 0RF ciprofloxacin HCl 500 mg tablet 500 mg PO BID 5 Days Qty: 10 0RF Continued hydrochlorothiazide 25 mg tablet 25 mg PO DAILY Discharge Orders: Discharge Order (Routine); Ordered 04/03/22 Ordered By: Angela Mabry Admission Data Admit Date/Time: 03/31/22 22:38 Attending Provider: Angela Mabry Admit Provider: Darvin Mansfield Primary Care Provider: Divina Berrios Other Providers: Darvin Mansfield Other Interventions: Discharge Summary Assessment (RN) Last Done: 04/03/22 12:11 Coding Level of Care Code D/C DAY MANAGEMENT >30 MINS Diagnoses Obstruction of left ureteropelvic junction due to stone N20.1 Sepsis due to urinary tract infection A41.9; N39.0 Asymptomatic COVID-19 virus infection U07.1 RAS (acute kidney injury) N17.9 Hypertension I10 Hydronephrosis with obstructing calculus N13.2 Hydronephrosis of left kidney N13.30 Hypokalemia E87.6 Hypomagnesemia E83.42 Time Spent (min) 35
[2022-04-03] MEDS ORDERED: FAMOTIDINE 20 MG TAB PO SCH (21:00)
--- NOTE | 2022-04-14 16:38 | Coding Query ---
CODING QUERY To promote full compliance with coding requirements relating to patient care, provider participation is requested in all cases of outdoor studies professor uncertainty. Please assist us with the question(s) below: Coding Question(s): Please review the microbiology report and specify diagnosis(es) associated with these findings: Sepsis due to: UTI UTI due to: indeterminate Physician's Response(s): Thank you Minnie Esquivel Principal Diagnosis: "that condition established after study, to be chiefly responsible for occasioning the admission of the patient to the hospital for care." Co-Existing Principal Diagnosis: "when two or more diagnoses equally meet the criteria for principal diagnosis as determined by the circumstances of admission, diagnostic work up, and/or therapy provided, and the Alphabetic Index, Tabular List, or another coding guideline does not provide sequencing direction, any one of the diagnoses may be sequenced first." "When the physician has documented what appears to be a current diagnosis in the body of the record, but has not included the diagnosis in the final diagnostic statement, the physician should be asked whether the diagnosis should be added." (Source Coding [facility] 2 QTR90. p3-4) RICARDO
== END 2022-04-03 12:45 | disposition home or self-care (01) | DRG 853 ==
LOC: ED 16:47 → 2S 21:09 → OR 21:09 → SUATTDRO 22:38 → 2S 22:38